=== PATIENT | male | born 1950 | race Hispanic/Latino ===

== ENCOUNTER → 2019-03-12 | Day surgery (SDC) | payer MEDICARE ==
[2019-03-09 11:51] LABS: BASOPHILS % 0.2 % (0.0-1.0); EOSINOPHILS # (AUTO) 0.1 (0.0-0.4); EOSINOPHILS % 1.5 % (0.0-6.0); HEMATOCRIT 40.6 % (38.2-49.6); LYMPHOCYTES # (AUTO) 2.2 (1.0-3.2); LYMPHOCYTES % 26.6 % (18.0-39.1); MEAN CORPUSCULAR HEMOGLOBIN 28.4 pg (28-32); MEAN CORPUSCULAR VOLUME 88.6 fL (81-99); MONOCYTES # (AUTO) 0.5 (0.2-0.8); MONOCYTES % 6.1 % (4.4-11.3); NEUTROPHILS # (AUTO) 5.4 (2.1-6.9); NEUTROPHILS % 65.2 % (38.7-80.0); PLATELET COUNT 241 x10e3/uL (140-360); RED BLOOD COUNT 4.58 x10e6/uL (4.3-5.7); RED CELL DISTRIBUTION WIDTH 14.1 % (11.7-14.4)
--- NOTE | 2019-03-09 12:19 | Diagnostic Imaging Report ---
EXAMINATION: CHEST 2 VIEWS INDICATION: Pre-operative COMPARISON: None FINDINGS: LINES/TUBES:None LUNGS:The lungs are well-inflated. No focal consolidation or pulmonary edema. PLEURA:No pleural effusion or pneumothorax. MEDIASTINUM:The cardiomediastinal silhouette appears normal in size and shape. Postoperative findings of prior CABG. BONES/SOFT TISSUES:No acute osseous injury. Sternotomy wires intact. ABDOMEN:No free air under the diaphragm. IMPRESSION: No focal pneumonia or pulmonary edema. Signed by: Melissa Esposito MD on 03/09/2019 12:16 PM
[~2019-03-12] MED LIST: ACETAMINOPHEN 1000 MG/100 ML IV ONE; ATORVASTATIN CA20 MG PO; BUPIVACAINE HCL 0.5% INJ 30 ML VIAL INJ ONE; CEFAZOLIN SOD 1 GM/NS 50ML 50 ML IV ONE; DEXAMETHASONE SOD PHOS INJ 4 MG/ML VIAL ONE; EPHEDRINE SULFATE INJ 50 MG/10 ML SYR ONE; FENTANYL CITRATE/PF 100MCG/2 ML INJ ONE; FLOMAX0.4 MG PO; LIDOCAINE HCL 2% LOCAL INJ 5 ML SDV VIAL INJ ONE; METOPROLOL SUCC25 MG PO; MIDAZOLAM HCL 2 MG/2 ML VIAL ONE; MUPIROCIN 2% OINT 22 GM TUBE ONE; ONDANSETRON HCL INJ 2MG/ML 2ML 2 MG/ML VIAL ONE; PROPOFOL IV EMULSION 10 MG/ML 20 ML VIAL ONE; SEVOFLURANE INHAL SOLN 250 ML PEN BTL ONE; ULTRAM 50MG50 MG PO
--- OUTSIDE RECORDS SUMMARY | 2019-03-12 05:43 | XMS REPORT ---
[facility] Address Unknown Phone Unavailable Care Team Providers [facility] [place] [facility] Name Role Phone YESENIA PHELAN Unavailable Unavailable Payers Payer Name Policy Type Policy Number Effective Date Expiration Date Problems This patient has no known problems. Allergies, Adverse Reactions, Alerts Allergy Name Allergy Type Status Severity Reaction(s) Onset Date Inactive Date Treating Clinician Comments No Known Allergies DA Active U 2019-01-11 00:00:00 No Known Allergies DA Active U 2018-12-20 00:00:00 No Known Allergies DA Active U 2018-11-19 00:00:00 Medications This patient has no known medications. Results Test Description Test Time Test Comments Text Results Atomic Results Result Comments CHEST 2 VIEWS 2019-03-09 12:15:00 [place] [id number] Patient Name: MORGAN SAM MR #: [id number] : 1950 Age/Sex: 68/M Req #: [id number] Adm Physician: Ordered by: YESENIA PHELAN MD Report #: [id number] Location: OR Room/Bed: Procedure: [id number] DX/CHEST 2 VIEWS Exam Date: 03/09/19 Exam Time: 1145 REPORT STATUS: Signed EXAMINATION: CHEST 2 VIEWS INDICATION: Pre-operative COMPARISON: None FINDINGS: LINES/TUBES:None LUNGS:The lungs are well-inflated. No focal consolidation or pulmonary edema. PLEURA:No pleural effusion or pneumothorax. MEDIASTINUM:The cardiomediastinal silhouette appears normal in size and shape. Postoperative findings of prior CABG. BONES/SOFT TISSUES:No acute osseous injury. Sternotomy wires intact. ABDOMEN:No free air under the diaphragm. IMPRESSION: No focal pneumonia or pulmonary edema. Signed by: Jose Hammond MD on 03/09/2019 12:16 PM Dictated By: JOSE HAMMOND MD 1216 Transcribed By: PARMINDER on 03/09/19 1216 COPY TO: YESENIA PHELAN MD - CT ABD PELVIS W/CONT 2019-01-11 23:36:00 Name: MORGAN CHEN [facility] : 1950 Age/S: 68 / M [address] [facility] Unit #: [id number] Loc: [place] [address] Phys: Keyur Blakely DO Acct: [id number] Dis Date: Status: REG ER PHONE #: [phone] Exam Date: 01/11/2019 2331 FAX #: [phone] Reason: abd pain EXAMS: CPT CODE: [id number] CT ABD PELVIS W/CONT 72571 EXAM: CT ABDOMEN AND PELVIS WITH CONTRAST. INDICATION: Abdominal pain COMPARISON: None available TECHNIQUE: Axial CT imaging of the abdomen and pelvis was obtained after the administration of intravenous contrast. Coronal and sagittal reformatted images were submitted for review. IV contrast: 100 mL of Isovue-370 DLP: 713.17 mGy-cm FINDINGS: The heart size is normal. There is a moderate pericardial effusion. There is a small left pleural effusion with left basilar atelectasis. The right lung bases clear. The liver, spleen, gallbladder, pancreas, and adrenal glands is unremarkable. No focal liver lesions are identified. No intrahepatic biliary duct dilatation. The main portal vein is patent and normal in size. The kidneys are normal in size. There is a simple renal cyst arising from the left kidney. No hydronephrosis or nephrolithiasis is identified. The urinary bladder is normal. The stomach, small bowel, large bowel, and appendix are normal in appearance. There is moderate stool noted within the rectum. No bowel obstruction is identified. No lymphadenopathy is identified in the abdomen or pelvis. No free fluid or free air. The IVC is normal. The abdominal aorta is normal in course and caliber. There are atherosclerotic calcifications of the abdominal aorta. No acute osseous abnormality is identified. IMPRESSION: Moderate pericardial effusion. Moderate left pleural effusion with left basilar atelectasis. Moderate stool noted in the rectum. No bowel obstruction. Normal appendix. LOCATION: B2 PAGE 1 Signed Report (CONTINUED) [facility] 1950 Age/S: 68 / M [address] [facility] Unit #: [id number] Loc: [place] [address] Phys: Keyur Blakely DO Acct: [id number] Dis Date: Status: REG ER PHONE #: [phone] Exam Date: 01/11/2019 2331 FAX #: [phone] Reason: abd pain EXAMS: CPT CODE: [id number] CT ABD PELVIS W/CONT 16895 <Continued> This CT exam was performed according to our departmental dose optimization program, which includes automated exposure control, adjustment of the mA and or kV according to patient size and/or use of iterative reconstruction technique. at 2336 Reported and signed by: Isabel Hernandez M.D. CC: Emmanuel Ramirez; Keyur Blakely DO Technologist:RT Charli(R)(CT) CTDI: DLP: Trnscb Date/Time: 01/11/2019 (2336) [id number] Orig Print D/T: S: 01/11/2019 (2339) PAGE 2 Signed Report BASIC METABOLIC PANEL 2019-01-11 23:06:00 SODIUM (test code=NA) 138 mmol/L 136-145 POTASSIUM (test code=K) 3.5 mmol/L 3.5-5.1 CHLORIDE (test code=CL) 104.0 mmol/L 98-107 CARBON DIOXIDE (test code=CO2) 22.0 mmol/L 21-32 ANION GAP (test code=GAP) 15.5 10-20 GLUCOSE (test code=GLU) 139 mg/dL 74-106 BLOOD UREA NITROGEN (test code=BUN) 14 mg/dL 7-18 GLOMERULAR FILTRATION RATE (test code=GFR) > 60 mL/min >=60 Estimated GFR by using Modified MDRD formula.Chronic kidney disease is defined as either kidney damageor GFR <60 mL/min/1.73 m2 for >3 months. CREATININE (test code=CREAT) 1.10 mg/dL 0.7-1.3 BUN/CREATININE RATIO (test code=BUN/CREA) 12.7 10-20 CALCIUM (test code=CA) 9.3 mg/dL 8.5-10.1 HEPATIC FUNCTION [id number] 23:06:00* Test Item Value Reference Range Comments TOTAL PROTEIN (test code=PROT) 8.2 gram/dL 6.4-8.2 ALBUMIN (test code=ALB) 4.3 g/dL 3.4-5.0 GLOBULIN (test code=GLOB) 3.9 gram/dL 2.7-4.2 ALBUMIN/GLOBULIN RATIO (test code=A/G) 1.1 0.75-1.50 BILIRUBIN TOTAL (test code=BILT) 0.50 mg/dL 0.0-1.0 BILIRUBIN DIRECT (test code=BILD) 0.18 mg/dL 0.0-0.20 SGOT/AST (test code=AST) 20 IUnit/L 15-37 SGPT/ALT (test code=ALT) 25 IUnit/L 12-78 ALKALINE PHOSPHATASE TOTAL (test code=ALKP) 94 IUnit/L 45-117 Note change in reference range due to change in reagent. [id number] 23:06:00* Test Item Value Reference Range Comments LIPASE (test code=LIP) 132 U/L 73.0-393.0 BASIC METABOLIC [id number] 22:56:00* Test Item Value Reference Range Comments SODIUM (test code=NA) 138 mmol/L 136-145 POTASSIUM (test code=K) 3.5 mmol/L 3.5-5.1 CHLORIDE (test code=CL) 104.0 mmol/L 98-107 CARBON DIOXIDE (test code=CO2) mmol/L 21-32 ANION GAP (test code=GAP) 10-20 GLUCOSE (test code=GLU) mg/dL 74-106 BLOOD UREA NITROGEN (test code=BUN) mg/dL 7-18 GLOMERULAR FILTRATION RATE (test code=GFR) mL/min >=60 CREATININE (test code=CREAT) mg/dL 0.7-1.3 BUN/CREATININE RATIO (test code=BUN/CREA) 10-20 CALCIUM (test code=CA) mg/dL 8.5-10.1 HEPATIC FUNCTION [id number] 22:56:00* Test Item Value Reference Range Comments TOTAL PROTEIN (test code=PROT) gram/dL 6.4-8.2 ALBUMIN (test code=ALB) g/dL 3.4-5.0 GLOBULIN (test code=GLOB) gram/dL 2.7-4.2 ALBUMIN/GLOBULIN RATIO (test code=A/G) 0.75-1.50 BILIRUBIN TOTAL (test code=BILT) mg/dL 0.0-1.0 BILIRUBIN DIRECT (test code=BILD) mg/dL 0.0-0.20 SGOT/AST (test code=AST) IUnit/L 15-37 SGPT/ALT (test code=ALT) IUnit/L 12-78 ALKALINE PHOSPHATASE TOTAL (test code=ALKP) IUnit/L 45-117 [id number] 22:56:00* Test Item Value Reference Range Comments LIPASE (test code=LIP) U/L 73.0-393.0 PROTHROMBIN [id number] 22:43:00* Test Item Value Reference Range Comments PROTHROMBIN TIME PATIENT (test code=PTP) 12.2 seconds 9.0-14.0 INTERNATIONAL NORMAL RATIO (test code=INR) 1.0 0.8-1.2 The therapeutic range for oral anticoagulant therapy formost indications is an international normalized ratio (INR)of between 2.0 and 3.0. The recommended therapeutic INRrange for various clinical situations is listed below: Clinical Situation INR range Pulmonary e mbolism treatment (2.0-3.0)Venous thrombosis treatmentVenous thrombosis prophylaxis (high risk surgery)Prevention of systemic embolism from: Acute myocardial infarction Valvular heart disease Atrial fibrillation Mechanical prosthetic heart valves (2.5-3.5) IS PATIENT ON ANTICOAGULANTS? NCBC W/O [id number] 22:36:00* Test Item Value Reference Range Comments WHITE BLOOD CELL (test code=WBC) 11.1 K/mm3 4.5-12.5 RED BLOOD CELL (test code=RBC) 4.53 mill/mm3 4.0-5.8 HEMOGLOBIN (test code=HGB) 12.6 gram/dL 13.0-17.5 HEMATOCRIT (test code=HCT) 40.4 % 42.0-52.0 MEAN CELL VOLUME (test code=MCV) 89.2 fL 80-98 MEAN CELL HGB (test code=MCH) 27.8 picogram 27.0-33.0 MEAN CELL HGB CONCETRATION (test code=MCHC) 31.2 gram/dL 33.0-36.0 RED CELL DISTRIBUTION WIDTH (test code=RDW) 13.2 % 11.6-16.2 PLATELET COUNT (test code=PLT) 251 K/mm3 150-450 MEAN PLATELET VOLUME (test code=MPV) 10.3 fL 6.7-11.0 [id number] 10:11:00* Test Item Value Reference Range Comments GLUBED (test code=GLUBED) 103 mg/dL 74-106 Performed by certified food production machine operator at [facility] [id number] 10:11:00* Test Item Value Reference Range Comments GLUBED (test code=GLUBED) 84 mg/dL 74-106 Performed by certified food production machine operator at [facility] [id number] 10:11:00* Test Item Value Reference Range Comments GLUBED (test code=GLUBED) 98 mg/dL 74-106 Performed by certified food production machine operator at [facility] [id number] 15:41:00* Test Item Value Reference Range Comments GLUBED (test code=GLUBED) 96 mg/dL 74-106 Performed by certified food production machine operator at [facility] [id number] 11:54:00* Test Item Value Reference Range Comments GLUBED (test code=GLUBED) 101 mg/dL 74-106 Performed by certified food production machine operator at [facility] [id number] 04:51:00* Test Item Value Reference Range Comments GLUBED (test code=GLUBED) 98 mg/dL 74-106 Performed by certified food production machine operator at [facility] [id number] 21:05:00* Test Item Value Reference Range Comments GLUBED (test code=GLUBED) 99 mg/dL 74-106 Performed by certified food production machine operator at [facility] [id number] 16:56:00* Test Item Value Reference Range Comments GLUBED (test code=GLUBED) 144 mg/dL 74-106 Performed by certified food production machine operator at [facility] [id number] 12:20:00* Test Item Value Reference Range Comments GLUBED (test code=GLUBED) 96 mg/dL 74-106 Performed by certified food production machine operator at [facility] BASIC METABOLIC [id number] 11:23:00* Test Item Value Reference Range Comments SODIUM (test code=NA) 143 mmol/L 136-145 POTASSIUM (test code=K) 3.6 mmol/L 3.5-5.1 CHLORIDE (test code=CL) 105.0 mmol/L 98-107 CARBON DIOXIDE (test code=CO2) 29.0 mmol/L 21-32 ANION GAP (test code=GAP) 12.6 10-20 GLUCOSE (test code=GLU) 144 mg/dL 74-106 BLOOD UREA NITROGEN (test code=BUN) 12 mg/dL 7-18 GLOMERULAR FILTRATION RATE (test code=GFR) > 60 mL/min >=60 Estimated GFR by using Modified MDRD formula.Chronic kidney disease is defined as either kidney damageor GFR <60 mL/min/1.73 m2 for >3 months. CREATININE (test code=CREAT) 0.92 mg/dL 0.7-1.3 BUN/CREATININE RATIO (test code=BUN/CREA) 13.0 10-20 CALCIUM (test code=CA) 8.3 mg/dL 8.5-10.1 BASIC METABOLIC [id number] 11:12:00* Test Item Value Reference Range Comments SODIUM (test code=NA) mmol/L 136-145 POTASSIUM (test code=K) mmol/L 3.5-5.1 CHLORIDE (test code=CL) mmol/L 98-107 CARBON DIOXIDE (test code=CO2) mmol/L 21-32 ANION GAP (test code=GAP) 10-20 GLUCOSE (test code=GLU) 144 mg/dL 74-106 BLOOD UREA NITROGEN (test code=BUN) 12 mg/dL 7-18 GLOMERULAR FILTRATION RATE (test code=GFR) > 60 mL/min >=60 Estimated GFR by using Modified MDRD formula.Chronic kidney disease is defined as either kidney damageor GFR <60 mL/min/1.73 m2 for >3 months. CREATININE (test code=CREAT) 0.92 mg/dL 0.7-1.3 BUN/CREATININE RATIO (test code=BUN/CREA) 13.0 10-20 CALCIUM (test code=CA) 8.3 mg/dL 8.5-10.1 BASIC METABOLIC [id number] 09:31:00* Test Item Value Reference Range Comments SODIUM (test code=NA) mmol/L 136-145 POTASSIUM (test code=K) mmol/L 3.5-5.1 CHLORIDE (test code=CL) mmol/L 98-107 CARBON DIOXIDE (test code=CO2) mmol/L 21-32 ANION GAP (test code=GAP) 10-20 GLUCOSE (test code=GLU) mg/dL 74-106 BLOOD UREA NITROGEN (test code=BUN) mg/dL 7-18 GLOMERULAR FILTRATION RATE (test code=GFR) mL/min >=60 CREATININE (test code=CREAT) mg/dL 0.7-1.3 BUN/CREATININE RATIO (test code=BUN/CREA) 10-20 CALCIUM (test code=CA) 8.3 mg/dL 8.5-10.1 CBC W/AUTO [id number] 09:08:00* Test Item Value Reference Range Comments WHITE BLOOD CELL (test code=WBC) 6.7 K/mm3 4.5-12.5 RED BLOOD CELL (test code=RBC) 2.83 mill/mm3 4.0-5.8 HEMOGLOBIN (test code=HGB) 8.5 gram/dL 13.0-17.5 HEMATOCRIT (test code=HCT) 27.0 % 42.0-52.0 MEAN CELL VOLUME (test code=MCV) 95.4 fL 80-98 MEAN CELL HGB (test code=MCH) 30.0 picogram 27.0-33.0 MEAN CELL HGB CONCETRATION (test code=MCHC) 31.5 gram/dL 33.0-36.0 RED CELL DISTRIBUTION WIDTH (test code=RDW) 14.9 % 11.6-16.2 RED CELL DISTRIBUTION WIDTH SD (test code=RDW-SD) 48.2 fL 37.0-51.0 PLATELET COUNT (test code=PLT) 294 K/mm3 150-450 MEAN PLATELET VOLUME (test code=MPV) 10.0 fL 6.7-11.0 NEUTROPHIL % (test code=NT%) 76.3 % 39.0-69.0 IMMATURE GRANULOCYTE % (test code=IG%) 1.0 % 0.0-5.0 LYMPHOCYTE % (test code=LY%) 13.2 % 25.0-55.0 MONOCYTE % (test code=MO%) 6.1 % 0.0-10.0 EOSINOPHIL % (test code=EO%) 3.1 % 0.0-5.0 BASOPHIL % (test code=BA%) 0.3 % 0.0-1.0 NUCLEATED RBC % (test code=NRBC%) 0.7 % 0-0 NEUTROPHIL # (test code=NT#) 5.09 K/mm3 1.8-7.7 IMMATURE GRANULOCYTE # (test code=IG#) 0.07 x10 3/uL 0-0.03 LYMPHOCYTE # (test code=LY#) 0.88 K/mm3 1.0-5.0 MONOCYTE # (test code=MO#) 0.41 K/mm3 0-0.8 EOSINOPHIL # (test code=EO#) 0.21 K/mm3 0.0-0.5 BASOPHIL # (test code=BA#) 0.02 K/mm3 0.0-0.2 NUCLEATED RBC # (test code=NRBC#) 0.05 K/mm3 0.0-0.1 [id number] 04:46:00* Test Item Value Reference Range Comments GLUBED (test code=GLUBED) 86 mg/dL 74-106 Performed by certified food production machine operator at [facility] [id number] 20:55:00* Test Item Value Reference Range Comments GLUBED (test code=GLUBED) 94 mg/dL 74-106 Performed by certified food production machine operator at [facility] [id number] 12:06:00* Test Item Value Reference Range Comments GLUBED (test code=GLUBED) 94 mg/dL 74-106 Performed by certified food production machine operator at [facility] BASIC METABOLIC [id number] 08:15:00* Test Item Value Reference Range Comments SODIUM (test code=NA) 144 mmol/L 136-145 POTASSIUM (test code=K) 3.9 mmol/L 3.5-5.1 CHLORIDE (test code=CL) 108.0 mmol/L 98-107 CARBON DIOXIDE (test code=CO2) 29.0 mmol/L 21-32 ANION GAP (test code=GAP) 10.9 10-20 GLUCOSE (test code=GLU) 97 mg/dL 74-106 BLOOD UREA NITROGEN (test code=BUN) 12 mg/dL 7-18 GLOMERULAR FILTRATION RATE (test code=GFR) > 60 mL/min >=60 Estimated GFR by using Modified MDRD formula.Chronic kidney disease is defined as either kidney damageor GFR <60 mL/min/1.73 m2 for >3 months. CREATININE (test code=CREAT) 0.90 mg/dL 0.7-1.3 BUN/CREATININE RATIO (test code=BUN/CREA) 12.8 10-20 CALCIUM (test code=CA) 8.1 mg/dL 8.5-10.1 CBC W/AUTO [id number] 07:55:00* Test Item Value Reference Range Comments WHITE BLOOD CELL (test code=WBC) 6.5 K/mm3 4.5-12.5 RED BLOOD CELL (test code=RBC) 2.56 mill/mm3 4.0-5.8 HEMOGLOBIN (test code=HGB) 7.8 gram/dL 13.0-17.5 HEMATOCRIT (test code=HCT) 24.3 % 42.0-52.0 MEAN CELL VOLUME (test code=MCV) 94.9 fL 80-98 MEAN CELL HGB (test code=MCH) 30.5 picogram 27.0-33.0 MEAN CELL HGB CONCETRATION (test code=MCHC) 32.1 gram/dL 33.0-36.0 RED CELL DISTRIBUTION WIDTH (test code=RDW) 14.4 % 11.6-16.2 RED CELL DISTRIBUTION WIDTH SD (test code=RDW-SD) 47.5 fL 37.0-51.0 PLATELET COUNT (test code=PLT) 229 K/mm3 150-450 RESULT VERIFIED BY REPEAT ANALYSIS MEAN PLATELET VOLUME (test code=MPV) 10.2 fL 6.7-11.0 NEUTROPHIL % (test code=NT%) 74.1 % 39.0-69.0 IMMATURE GRANULOCYTE % (test code=IG%) 0.9 % 0.0-5.0 LYMPHOCYTE % (test code=LY%) 14.4 % 25.0-55.0 MONOCYTE % (test code=MO%) 7.4 % 0.0-10.0 EOSINOPHIL % (test code=EO%) 2.9 % 0.0-5.0 BASOPHIL % (test code=BA%) 0.3 % 0.0-1.0 NUCLEATED RBC % (test code=NRBC%) 0.9 % 0-0 NEUTROPHIL # (test code=NT#) 4.78 K/mm3 1.8-7.7 IMMATURE GRANULOCYTE # (test code=IG#) 0.06 x10 3/uL 0-0.03 LYMPHOCYTE # (test code=LY#) 0.93 K/mm3 1.0-5.0 MONOCYTE # (test code=MO#) 0.48 K/mm3 0-0.8 EOSINOPHIL # (test code=EO#) 0.19 K/mm3 0.0-0.5 BASOPHIL # (test code=BA#) 0.02 K/mm3 0.0-0.2 NUCLEATED RBC # (test code=NRBC#) 0.06 K/mm3 0.0-0.1 [id number] 05:49:00* Test Item Value Reference Range Comments GLUBED (test code=GLUBED) 102 mg/dL 74-106 Performed by certified food production machine operator at [facility] [id number] 20:25:00* Test Item Value Reference Range Comments GLUBED (test code=GLUBED) 106 mg/dL 74-106 Performed by certified food production machine operator at [facility] [id number] 17:38:00* Test Item Value Reference Range Comments GLUBED (test code=GLUBED) 109 mg/dL 74-106 Performed by certified food production machine operator at [facility] [id number] 13:05:00* Test Item Value Reference Range Comments GLUBED (test code=GLUBED) 131 mg/dL 74-106 Performed by certified food production machine operator at [facility] BASIC METABOLIC [id number] 08:59:00* Test Item Value Reference Range Comments SODIUM (test code=NA) 143 mmol/L 136-145 POTASSIUM (test code=K) 3.6 mmol/L 3.5-5.1 CHLORIDE (test code=CL) 110.0 mmol/L 98-107 CARBON DIOXIDE (test code=CO2) 26.0 mmol/L 21-32 ANION GAP (test code=GAP) 10.6 10-20 GLUCOSE (test code=GLU) 106 mg/dL 74-106 BLOOD UREA NITROGEN (test code=BUN) 13 mg/dL 7-18 GLOMERULAR FILTRATION RATE (test code=GFR) > 60 mL/min >=60 Estimated GFR by using Modified MDRD formula.Chronic kidney disease is defined as either kidney damageor GFR <60 mL/min/1.73 m2 for >3 months. CREATININE (test code=CREAT) 0.90 mg/dL 0.7-1.3 BUN/CREATININE RATIO (test code=BUN/CREA) 14.2 10-20 CALCIUM (test code=CA) 7.9 mg/dL 8.5-10.1 BASIC METABOLIC [id number] 08:47:00* Test Item Value Reference Range Comments SODIUM (test code=NA) 143 mmol/L 136-145 POTASSIUM (test code=K) 3.6 mmol/L 3.5-5.1 CHLORIDE (test code=CL) 110.0 mmol/L 98-107 CARBON DIOXIDE (test code=CO2) mmol/L 21-32 ANION GAP (test code=GAP) 10-20 GLUCOSE (test code=GLU) mg/dL 74-106 BLOOD UREA NITROGEN (test code=BUN) mg/dL 7-18 GLOMERULAR FILTRATION RATE (test code=GFR) mL/min >=60 CREATININE (test code=CREAT) mg/dL 0.7-1.3 BUN/CREATININE RATIO (test code=BUN/CREA) 10-20 CALCIUM (test code=CA) mg/dL 8.5-10.1 CBC W/AUTO [id number] 08:35:00* Test Item Value Reference Range Comments WHITE BLOOD CELL (test code=WBC) 7.3 K/mm3 4.5-12.5 RED BLOOD CELL (test code=RBC) 2.61 mill/mm3 4.0-5.8 HEMOGLOBIN (test code=HGB) 7.7 gram/dL 13.0-17.5 HEMATOCRIT (test code=HCT) 24.1 % 42.0-52.0 MEAN CELL VOLUME (test code=MCV) 92.3 fL 80-98 MEAN CELL HGB (test code=MCH) 29.5 picogram 27.0-33.0 MEAN CELL HGB CONCETRATION (test code=MCHC) 32.0 gram/dL 33.0-36.0 RED CELL DISTRIBUTION WIDTH (test code=RDW) 14.4 % 11.6-16.2 RED CELL DISTRIBUTION WIDTH SD (test code=RDW-SD) 47.8 fL 37.0-51.0 PLATELET COUNT (test code=PLT) 177 K/mm3 150-450 MEAN PLATELET VOLUME (test code=MPV) 10.7 fL 6.7-11.0 NEUTROPHIL % (test code=NT%) 70.9 % 39.0-69.0 IMMATURE GRANULOCYTE % (test code=IG%) 1.0 % 0.0-5.0 LYMPHOCYTE % (test code=LY%) 18.3 % 25.0-55.0 MONOCYTE % (test code=MO%) 7.5 % 0.0-10.0 EOSINOPHIL % (test code=EO%) 2.0 % 0.0-5.0 BASOPHIL % (test code=BA%) 0.3 % 0.0-1.0 NUCLEATED RBC % (test code=NRBC%) 0.7 % 0-0 NEUTROPHIL # (test code=NT#) 5.20 K/mm3 1.8-7.7 IMMATURE GRANULOCYTE # (test code=IG#) 0.07 x10 3/uL 0-0.03 LYMPHOCYTE # (test code=LY#) 1.34 K/mm3 1.0-5.0 MONOCYTE # (test code=MO#) 0.55 K/mm3 0-0.8 EOSINOPHIL # (test code=EO#) 0.15 K/mm3 0.0-0.5 BASOPHIL # (test code=BA#) 0.02 K/mm3 0.0-0.2 NUCLEATED RBC # (test code=NRBC#) 0.05 K/mm3 0.0-0.1 [id number] 20:57:00* Test Item Value Reference Range Comments GLUBED (test code=GLUBED) 111 mg/dL 74-106 Performed by certified food production machine operator at [facility] [id number] 12:18:00* Test Item Value Reference Range Comments GLUBED (test code=GLUBED) 114 mg/dL 74-106 Performed by certified food production machine operator at [facility] CBC W/AUTO [id number] 07:47:00* Test Item Value Reference Range Comments WHITE BLOOD CELL (test code=WBC) 7.4 K/mm3 4.5-12.5 RED BLOOD CELL (test code=RBC) 2.45 mill/mm3 4.0-5.8 HEMOGLOBIN (test code=HGB) 7.4 gram/dL 13.0-17.5 HEMATOCRIT (test code=HCT) 23.0 % 42.0-52.0 MEAN CELL VOLUME (test code=MCV) 93.9 fL 80-98 MEAN CELL HGB (test code=MCH) 30.2 picogram 27.0-33.0 MEAN CELL HGB CONCETRATION (test code=MCHC) 32.2 gram/dL 33.0-36.0 RED CELL DISTRIBUTION WIDTH (test code=RDW) 14.7 % 11.6-16.2 RED CELL DISTRIBUTION WIDTH SD (test code=RDW-SD) 50.3 fL 37.0-51.0 PLATELET COUNT (test code=PLT) 102 K/mm3 150-450 MEAN PLATELET VOLUME (test code=MPV) 11.1 fL 6.7-11.0 NEUTROPHIL % (test code=NT%) 70.8 % 39.0-69.0 IMMATURE GRANULOCYTE % (test code=IG%) 1.2 % 0.0-5.0 LYMPHOCYTE % (test code=LY%) 17.8 % 25.0-55.0 MONOCYTE % (test code=MO%) 8.4 % 0.0-10.0 EOSINOPHIL % (test code=EO%) 1.5 % 0.0-5.0 BASOPHIL % (test code=BA%) 0.3 % 0.0-1.0 NUCLEATED RBC % (test code=NRBC%) 0.5 % 0-0 NEUTROPHIL # (test code=NT#) 5.26 K/mm3 1.8-7.7 IMMATURE GRANULOCYTE # (test code=IG#) 0.09 x10 3/uL 0-0.03 LYMPHOCYTE # (test code=LY#) 1.32 K/mm3 1.0-5.0 MONOCYTE # (test code=MO#) 0.62 K/mm3 0-0.8 EOSINOPHIL # (test code=EO#) 0.11 K/mm3 0.0-0.5 BASOPHIL # (test code=BA#) 0.02 K/mm3 0.0-0.2 NUCLEATED RBC # (test code=NRBC#) 0.04 K/mm3 0.0-0.1 MANUAL DIFF REQUIRED (test code=MDIFF) NO, ONLY SCAN NEEDED DIFFERENTIAL [id number] 07:47:00* Test Item Value Reference Range Comments STAIN ACCEPTABILITY (test code=STN ACCEPTABLE) STAIN ACCEPTABLE POLYCHROMASIA (test code=POLC) 1+ HYPOCHROMIA (test code=HYPO) 1+ PLATELET ESTIMATE (test code=PLTEST) SLIGHTLY DECREASED PLATELET MORPHOLOGY (test code=PLTMORPH) NORMAL - XR CHEST 1 [id number] 06:02:00 FAX: Emmanuel Hammonds MD [phone] [place]: B St: ADM FAX: Martir Alvarado MD [phone] FAX: [facility] [phone] FAX: Shree Madrigal NP [phone] Name: SANDRITA MORGAN FRIAS [facility] : 1950 Age/S: 68/M [address] Unit #: [id number] Loc: [address] [address] Phys: Shree Cuellar [employer] Acct: [id number] Dis Date: Status: ADM IN PHONE #: [phone] Exam D ate: 12/05/2018 05 FAX #: [phone] Reason: P OST OP DAY 3 (CABG) EXAMS: CPT CODE: [id number] XR CHEST 1 V 12820 CLINICAL HISTORY: POST OP DAY 3 (CABG) TECHNIQUE: AP chest x-ray COMPARISON: Previous day. IMPRESSION: No significant interval change. Low lung volumes with bibasilar atelectasis, greater on the left. No evident pl eural effusion. Cardiomegaly. Right central venous catheter. at 0602 Reported and signed by: Henny Tierney D.O. CC: Emmanuel Ramirez; Martir Javed; Daryl Cohen; Shree De La Rosa NP Technologist: OSIRIS MORELAND JR Trnscrd Date/Time/By: 9 (0602) : By: [email or web address] Orig Print D/T: S: 12/05/2018 (0605) PAGE 1 Signed Report BASIC METABOLIC [id number] 05:02:00* Test Item Value Reference Range Comments SODIUM (test code=NA) 145 mmol/L 136-145 POTASSIUM (test code=K) 3.9 mmol/L 3.5-5.1 CHLORIDE (test code=CL) 113.0 mmol/L 98-107 CARBON DIOXIDE (test code=CO2) 25.0 mmol/L 21-32 ANION GAP (test code=GAP) 10.9 10-20 GLUCOSE (test code=GLU) 96 mg/dL 74-106 BLOOD UREA NITROGEN (test code=BUN) 22 mg/dL 7-18 GLOMERULAR FILTRATION RATE (test code=GFR) > 60 mL/min >=60 Estimated GFR by using Modified MDRD formula.Chronic kidney disease is defined as either kidney damageor GFR <60 mL/min/1.73 m2 for >3 months. CREATININE (test code=CREAT) 1.00 mg/dL 0.7-1.3 BUN/CREATININE RATIO (test code=BUN/CREA) 21.4 10-20 CALCIUM (test code=CA) 7.4 mg/dL 8.5-10.1 [id number] 05:02:00* Test Item Value Reference Range Comments PHOSPHORUS (test code=PHOS) 1.9 mg/dL 2.5-4.9 [id number] 05:02:00* Test Item Value Reference Range Comments MAGNESIUM (test code=MAG) 2.2 mg/dL 1.8-2.4 CALCIUM [id number] 05:02:00* Test Item Value Reference Range Comments CALCIUM IONIZED (test code=CYNTHIA) 1.23 mmol/L 1.12-1.32 BASIC METABOLIC [id number] 04:29:00* Test Item Value Reference Range Comments SODIUM (test code=NA) mmol/L 136-145 POTASSIUM (test code=K) mmol/L 3.5-5.1 CHLORIDE (test code=CL) mmol/L 98-107 CARBON DIOXIDE (test code=CO2) mmol/L 21-32 ANION GAP (test code=GAP) 10-20 GLUCOSE (test code=GLU) mg/dL 74-106 BLOOD UREA NITROGEN (test code=BUN) mg/dL 7-18 GLOMERULAR FILTRATION RATE (test code=GFR) mL/min >=60 CREATININE (test code=CREAT) mg/dL 0.7-1.3 BUN/CREATININE RATIO (test code=BUN/CREA) 10-20 CALCIUM (test code=CA) mg/dL 8.5-10.1 [id number] 04:29:00* Test Item Value Reference Range Comments PHOSPHORUS (test code=PHOS) mg/dL 2.5-4.9 [id number] 04:29:00* Test Item Value Reference Range Comments MAGNESIUM (test code=MAG) mg/dL 1.8-2.4 CALCIUM [id number] 04:29:00* Test Item Value Reference Range Comments CALCIUM IONIZED (test code=CYNTHIA) 1.23 mmol/L 1.12-1.32 CBC W/AUTO [id number] 04:11:00* Test Item Value Reference Range Comments WHITE BLOOD CELL (test code=WBC) 7.4 K/mm3 4.5-12.5 RED BLOOD CELL (test code=RBC) 2.45 mill/mm3 4.0-5.8 HEMOGLOBIN (test code=HGB) 7.4 gram/dL 13.0-17.5 HEMATOCRIT (test code=HCT) 23.0 % 42.0-52.0 MEAN CELL VOLUME (test code=MCV) 93.9 fL 80-98 MEAN CELL HGB (test code=MCH) 30.2 picogram 27.0-33.0 MEAN CELL HGB CONCETRATION (test code=MCHC) 32.2 gram/dL 33.0-36.0 RED CELL DISTRIBUTION WIDTH (test code=RDW) 14.7 % 11.6-16.2 RED CELL DISTRIBUTION WIDTH SD (test code=RDW-SD) 50.3 fL 37.0-51.0 PLATELET COUNT (test code=PLT) 102 K/mm3 150-450 MEAN PLATELET VOLUME (test code=MPV) 11.1 fL 6.7-11.0 NEUTROPHIL % (test code=NT%) 70.8 % 39.0-69.0 IMMATURE GRANULOCYTE % (test code=IG%) 1.2 % 0.0-5.0 LYMPHOCYTE % (test code=LY%) 17.8 % 25.0-55.0 MONOCYTE % (test code=MO%) 8.4 % 0.0-10.0 EOSINOPHIL % (test code=EO%) 1.5 % 0.0-5.0 BASOPHIL % (test code=BA%) 0.3 % 0.0-1.0 NUCLEATED RBC % (test code=NRBC%) 0.5 % 0-0 NEUTROPHIL # (test code=NT#) 5.26 K/mm3 1.8-7.7 IMMATURE GRANULOCYTE # (test code=IG#) 0.09 x10 3/uL 0-0.03 LYMPHOCYTE # (test code=LY#) 1.32 K/mm3 1.0-5.0 MONOCYTE # (test code=MO#) 0.62 K/mm3 0-0.8 EOSINOPHIL # (test code=EO#) 0.11 K/mm3 0.0-0.5 BASOPHIL # (test code=BA#) 0.02 K/mm3 0.0-0.2 NUCLEATED RBC # (test code=NRBC#) 0.04 K/mm3 0.0-0.1 MANUAL DIFF REQUIRED (test code=MDIFF) NO, ONLY SCAN NEEDED DIFFERENTIAL [id number] 04:11:00* Test Item Value Reference Range Comments STAIN ACCEPTABILITY (test code=STN ACCEPTABLE) CABOT RINGS (test code=CAB) MORPHOLOGY COMMENT (test code=MOC) PLATELET ESTIMATE (test code=PLTEST) PLATELET MORPHOLOGY (test code=PLTMORPH) CBC W/AUTO [id number] 04:11:00* Test Item Value Reference Range Comments WHITE BLOOD CELL (test code=WBC) 7.4 K/mm3 4.5-12.5 RED BLOOD CELL (test code=RBC) 2.45 mill/mm3 4.0-5.8 HEMOGLOBIN (test code=HGB) 7.4 gram/dL 13.0-17.5 HEMATOCRIT (test code=HCT) 23.0 % 42.0-52.0 MEAN CELL VOLUME (test code=MCV) 93.9 fL 80-98 MEAN CELL HGB (test code=MCH) 30.2 picogram 27.0-33.0 MEAN CELL HGB CONCETRATION (test code=MCHC) 32.2 gram/dL 33.0-36.0 RED CELL DISTRIBUTION WIDTH (test code=RDW) 14.7 % 11.6-16.2 RED CELL DISTRIBUTION WIDTH SD (test code=RDW-SD) 50.3 fL 37.0-51.0 PLATELET COUNT (test code=PLT) 102 K/mm3 150-450 MEAN PLATELET VOLUME (test code=MPV) 11.1 fL 6.7-11.0 NEUTROPHIL % (test code=NT%) 70.8 % 39.0-69.0 IMMATURE GRANULOCYTE % (test code=IG%) 1.2 % 0.0-5.0 LYMPHOCYTE % (test code=LY%) 17.8 % 25.0-55.0 MONOCYTE % (test code=MO%) 8.4 % 0.0-10.0 EOSINOPHIL % (test code=EO%) 1.5 % 0.0-5.0 BASOPHIL % (test code=BA%) 0.3 % 0.0-1.0 NUCLEATED RBC % (test code=NRBC%) 0.5 % 0-0 NEUTROPHIL # (test code=NT#) 5.26 K/mm3 1.8-7.7 IMMATURE GRANULOCYTE # (test code=IG#) 0.09 x10 3/uL 0-0.03 LYMPHOCYTE # (test code=LY#) 1.32 K/mm3 1.0-5.0 MONOCYTE # (test code=MO#) 0.62 K/mm3 0-0.8 EOSINOPHIL # (test code=EO#) 0.11 K/mm3 0.0-0.5 BASOPHIL # (test code=BA#) 0.02 K/mm3 0.0-0.2 NUCLEATED RBC # (test code=NRBC#) 0.04 K/mm3 0.0-0.1 MANUAL DIFF REQUIRED (test code=MDIFF) NO, ONLY SCAN NEEDED DIFFERENTIAL [id number] 04:11:00* Test Item Value Reference Range Comments STAIN ACCEPTABILITY (test code=STN ACCEPTABLE) MORPHOLOGY COMMENT (test code=MOC) PLATELET ESTIMATE (test code=PLTEST) PLATELET MORPHOLOGY (test code=PLTMORPH) CBC W/AUTO [id number] 04:10:00* Test Item Value Reference Range Comments WHITE BLOOD CELL (test code=WBC) 7.4 K/mm3 4.5-12.5 RED BLOOD CELL (test code=RBC) 2.45 mill/mm3 4.0-5.8 HEMOGLOBIN (test code=HGB) 7.4 gram/dL 13.0-17.5 HEMATOCRIT (test code=HCT) 23.0 % 42.0-52.0 MEAN CELL VOLUME (test code=MCV) 93.9 fL 80-98 MEAN CELL HGB (test code=MCH) 30.2 picogram 27.0-33.0 MEAN CELL HGB CONCETRATION (test code=MCHC) 32.2 gram/dL 33.0-36.0 RED CELL DISTRIBUTION WIDTH (test code=RDW) 14.7 % 11.6-16.2 RED CELL DISTRIBUTION WIDTH SD (test code=RDW-SD) 50.3 fL 37.0-51.0 PLATELET COUNT (test code=PLT) 102 K/mm3 150-450 MEAN PLATELET VOLUME (test code=MPV) 11.1 fL 6.7-11.0 NEUTROPHIL % (test code=NT%) 70.8 % 39.0-69.0 IMMATURE GRANULOCYTE % (test code=IG%) 1.2 % 0.0-5.0 LYMPHOCYTE % (test code=LY%) 17.8 % 25.0-55.0 MONOCYTE % (test code=MO%) 8.4 % 0.0-10.0 EOSINOPHIL % (test code=EO%) 1.5 % 0.0-5.0 BASOPHIL % (test code=BA%) 0.3 % 0.0-1.0 NUCLEATED RBC % (test code=NRBC%) 0.5 % 0-0 NEUTROPHIL # (test code=NT#) 5.26 K/mm3 1.8-7.7 IMMATURE GRANULOCYTE # (test code=IG#) 0.09 x10 3/uL 0-0.03 LYMPHOCYTE # (test code=LY#) 1.32 K/mm3 1.0-5.0 MONOCYTE # (test code=MO#) 0.62 K/mm3 0-0.8 EOSINOPHIL # (test code=EO#) 0.11 K/mm3 0.0-0.5 BASOPHIL # (test code=BA#) 0.02 K/mm3 0.0-0.2 NUCLEATED RBC # (test code=NRBC#) 0.04 K/mm3 0.0-0.1 MANUAL DIFF REQUIRED (test code=MDIFF) NO, ONLY SCAN NEEDED DIFFERENTIAL [id number] 04:10:00* Test Item Value Reference Range Comments STAIN ACCEPTABILITY (test code=STN ACCEPTABLE) CABOT RINGS (test code=CAB) MORPHOLOGY COMMENT (test code=MOC) PLATELET ESTIMATE (test code=PLTEST) PLATELET MORPHOLOGY (test code=PLTMORPH) CBC W/AUTO [id number] 04:10:00* Test Item Value Reference Range Comments WHITE BLOOD CELL (test code=WBC) 7.4 K/mm3 4.5-12.5 RED BLOOD CELL (test code=RBC) 2.45 mill/mm3 4.0-5.8 HEMOGLOBIN (test code=HGB) 7.4 gram/dL 13.0-17.5 HEMATOCRIT (test code=HCT) 23.0 % 42.0-52.0 MEAN CELL VOLUME (test code=MCV) 93.9 fL 80-98 MEAN CELL HGB (test code=MCH) 30.2 picogram 27.0-33.0 MEAN CELL HGB CONCETRATION (test code=MCHC) 32.2 gram/dL 33.0-36.0 RED CELL DISTRIBUTION WIDTH (test code=RDW) 14.7 % 11.6-16.2 RED CELL DISTRIBUTION WIDTH SD (test code=RDW-SD) 50.3 fL 37.0-51.0 PLATELET COUNT (test code=PLT) 102 K/mm3 150-450 MEAN PLATELET VOLUME (test code=MPV) 11.1 fL 6.7-11.0 NEUTROPHIL % (test code=NT%) 70.8 % 39.0-69.0 IMMATURE GRANULOCYTE % (test code=IG%) 1.2 % 0.0-5.0 LYMPHOCYTE % (test code=LY%) 17.8 % 25.0-55.0 MONOCYTE % (test code=MO%) 8.4 % 0.0-10.0 EOSINOPHIL % (test code=EO%) 1.5 % 0.0-5.0 BASOPHIL % (test code=BA%) 0.3 % 0.0-1.0 NUCLEATED RBC % (test code=NRBC%) 0.5 % 0-0 NEUTROPHIL # (test code=NT#) 5.26 K/mm3 1.8-7.7 IMMATURE GRANULOCYTE # (test code=IG#) 0.09 x10 3/uL 0-0.03 LYMPHOCYTE # (test code=LY#) 1.32 K/mm3 1.0-5.0 MONOCYTE # (test code=MO#) 0.62 K/mm3 0-0.8 EOSINOPHIL # (test code=EO#) 0.11 K/mm3 0.0-0.5 BASOPHIL # (test code=BA#) 0.02 K/mm3 0.0-0.2 NUCLEATED RBC # (test code=NRBC#) 0.04 K/mm3 0.0-0.1 MANUAL DIFF REQUIRED (test code=MDIFF) NO, ONLY SCAN NEEDED DIFFERENTIAL [id number] 04:10:00* Test Item Value Reference Range Comments STAIN ACCEPTABILITY (test code=STN ACCEPTABLE) CABOT RINGS (test code=CAB) MORPHOLOGY COMMENT (test code=MOC) PLATELET ESTIMATE (test code=PLTEST) PLATELET MORPHOLOGY (test code=PLTMORPH) CBC W/AUTO [id number] 19:47:00* Test Item Value Reference Range Comments WHITE BLOOD CELL (test code=WBC) 9.4 K/mm3 4.5-12.5 RED BLOOD CELL (test code=RBC) 2.61 mill/mm3 4.0-5.8 HEMOGLOBIN (test code=HGB) 7.9 gram/dL 13.0-17.5 HEMATOCRIT (test code=HCT) 24.4 % 42.0-52.0 MEAN CELL VOLUME (test code=MCV) 93.5 fL 80-98 MEAN CELL HGB (test code=MCH) 30.3 picogram 27.0-33.0 MEAN CELL HGB CONCETRATION (test code=MCHC) 32.4 gram/dL 33.0-36.0 RED CELL DISTRIBUTION WIDTH (test code=RDW) 14.1 % 11.6-16.2 RED CELL DISTRIBUTION WIDTH SD (test code=RDW-SD) 48.1 fL 37.0-51.0 PLATELET COUNT (test code=PLT) 97 K/mm3 150-450 RESULT VERIFIED BY REPEAT ANALYSIS MEAN PLATELET VOLUME (test code=MPV) 11.6 fL 6.7-11.0 NEUTROPHIL % (test code=NT%) 75.3 % 39.0-69.0 IMMATURE GRANULOCYTE % (test code=IG%) 0.7 % 0.0-5.0 LYMPHOCYTE % (test code=LY%) 14.2 % 25.0-55.0 MONOCYTE % (test code=MO%) 9.5 % 0.0-10.0 EOSINOPHIL % (test code=EO%) 0.1 % 0.0-5.0 BASOPHIL % (test code=BA%) 0.2 % 0.0-1.0 NUCLEATED RBC % (test code=NRBC%) 0.2 % 0-0 NEUTROPHIL # (test code=NT#) 7.06 K/mm3 1.8-7.7 IMMATURE GRANULOCYTE # (test code=IG#) 0.07 x10 3/uL 0-0.03 LYMPHOCYTE # (test code=LY#) 1.33 K/mm3 1.0-5.0 MONOCYTE # (test code=MO#) 0.89 K/mm3 0-0.8 EOSINOPHIL # (test code=EO#) 0.01 K/mm3 0.0-0.5 BASOPHIL # (test code=BA#) 0.02 K/mm3 0.0-0.2 NUCLEATED RBC # (test code=NRBC#) 0.02 K/mm3 0.0-0.1 MANUAL DIFF REQUIRED (test code=MDIFF) NO, ONLY SCAN NEEDED DIFFERENTIAL [id number] 19:47:00* Test Item Value Reference Range Comments STAIN ACCEPTABILITY (test code=STN ACCEPTABLE) STAIN ACCEPTABLE MORPHOLOGY COMMENT (test code=MOC) NORMAL PLATELET ESTIMATE (test code=PLTEST) DECREASED PLATELET MORPHOLOGY (test code=PLTMORPH) NORMAL - XR CHEST 1 [id number] 18:55:00 FAX: Emmanuel Hammonds MD [phone] [place]: B St: ADM FAX: Martir Alvarado MD [phone] FAX: Lolly Prince FAX: [facility] [phone] Name: SANDRITA FRIASMORGAN [facility] : 1950 Age/S: 68/M [address] [facility] Unit #: [id number] Loc: V.S [address] [place] [id number] Phys: Lolly Aguero NP Acct: [id number] Dis Date: Status: ADM IN PHONE #: [phone] Exam D ate: 12/04/2018 1748 FAX #: [phone] Reason: s /p removal mediastinal and pleural chest tubes EXAMS: CPT CODE: [id number] XR CHEST 1 V [id number] REASON FOR EXAM: s/p removal mediast inal and pleural chest tubes EXAM ORDER DATE: 12/04/2018 5:41 PM Ordering MNorma: Lolly Aguero NP PROCEDURE: - XR CHEST 1 V COMPARISON: 12/04/2018 at 4:34 AM FIND INGS: Portable AP frontal view of the chest obtained at 5:48 PM shows sid ar lungs without evidence of consolidation. There is no evidence of effusi on. The heart size is minimally enlarged. Stable appearance of the right IJ central line. Pulmonary vasculatures are minimally congested. IMPRESSION: Status post removal of the mediastinal drainage tubes and left surgical chest tube. No evidence of pneumothorax Electro nically Signed by Sunny Britt on 12/04/2018 at 1855 Rep orted and signed by: Bryan Britt M.D. CC: Emmanuel Ramirez; Rafael Javed; Lolly Aguero NP; [facility] Technologist: Geeta Gomez(R) Trnscrd Date/Time/By: 12/04/2018 (1854) : By: MollyL Orig Print D/T: S: 12/04/2018 (1857) PAGE 1 Signed Report BASIC METABOLIC PANEL 2018-12-04 17:58:00* Test Item Value Reference Range Comments SODIUM (test code=NA) 145 mmol/L 136-145 POTASSIUM (test code=K) 4.2 mmol/L 3.5-5.1 CHLORIDE (test code=CL) 114.0 mmol/L 98-107 CARBON DIOXIDE (test code=CO2) 23.0 mmol/L 21-32 ANION GAP (test code=GAP) 12.2 10-20 GLUCOSE (test code=GLU) 111 mg/dL 74-106 BLOOD UREA NITROGEN (test code=BUN) 25 mg/dL 7-18 GLOMERULAR FILTRATION RATE (test code=GFR) 60 mL/min >=60 Estimated GFR by using Modified MDRD formula.Chronic kidney disease is defined as either kidney damageor GFR <60 mL/min/1.73 m2 for >3 months. CREATININE (test code=CREAT) 1.20 mg/dL 0.7-1.3 BUN/CREATININE RATIO (test code=BUN/CREA) 21.0 10-20 CALCIUM (test code=CA) 8.0 mg/dL 8.5-10.1 BASIC METABOLIC [id number] 17:52:00* Test Item Value Reference Range Comments SODIUM (test code=NA) 145 mmol/L 136-145 POTASSIUM (test code=K) 4.2 mmol/L 3.5-5.1 CHLORIDE (test code=CL) 114.0 mmol/L 98-107 CARBON DIOXIDE (test code=CO2) mmol/L 21-32 ANION GAP (test code=GAP) 10-20 GLUCOSE (test code=GLU) mg/dL 74-106 BLOOD UREA NITROGEN (test code=BUN) mg/dL 7-18 GLOMERULAR FILTRATION RATE (test code=GFR) mL/min >=60 CREATININE (test code=CREAT) mg/dL 0.7-1.3 BUN/CREATININE RATIO (test code=BUN/CREA) 10-20 CALCIUM (test code=CA) mg/dL 8.5-10.1 CBC W/AUTO [id number] 17:06:00* Test Item Value Reference Range Comments WHITE BLOOD CELL (test code=WBC) 9.4 K/mm3 4.5-12.5 RED BLOOD CELL (test code=RBC) 2.61 mill/mm3 4.0-5.8 HEMOGLOBIN (test code=HGB) 7.9 gram/dL 13.0-17.5 HEMATOCRIT (test code=HCT) 24.4 % 42.0-52.0 MEAN CELL VOLUME (test code=MCV) 93.5 fL 80-98 MEAN CELL HGB (test code=MCH) 30.3 picogram 27.0-33.0 MEAN CELL HGB CONCETRATION (test code=MCHC) 32.4 gram/dL 33.0-36.0 RED CELL DISTRIBUTION WIDTH (test code=RDW) 14.1 % 11.6-16.2 RED CELL DISTRIBUTION WIDTH SD (test code=RDW-SD) 48.1 fL 37.0-51.0 PLATELET COUNT (test code=PLT) 97 K/mm3 150-450 RESULT VERIFIED BY REPEAT ANALYSIS MEAN PLATELET VOLUME (test code=MPV) 11.6 fL 6.7-11.0 NEUTROPHIL % (test code=NT%) 75.3 % 39.0-69.0 IMMATURE GRANULOCYTE % (test code=IG%) 0.7 % 0.0-5.0 LYMPHOCYTE % (test code=LY%) 14.2 % 25.0-55.0 MONOCYTE % (test code=MO%) 9.5 % 0.0-10.0 EOSINOPHIL % (test code=EO%) 0.1 % 0.0-5.0 BASOPHIL % (test code=BA%) 0.2 % 0.0-1.0 NUCLEATED RBC % (test code=NRBC%) 0.2 % 0-0 NEUTROPHIL # (test code=NT#) 7.06 K/mm3 1.8-7.7 IMMATURE GRANULOCYTE # (test code=IG#) 0.07 x10 3/uL 0-0.03 LYMPHOCYTE # (test code=LY#) 1.33 K/mm3 1.0-5.0 MONOCYTE # (test code=MO#) 0.89 K/mm3 0-0.8 EOSINOPHIL # (test code=EO#) 0.01 K/mm3 0.0-0.5 BASOPHIL # (test code=BA#) 0.02 K/mm3 0.0-0.2 NUCLEATED RBC # (test code=NRBC#) 0.02 K/mm3 0.0-0.1 MANUAL DIFF REQUIRED (test code=MDIFF) NO, ONLY SCAN NEEDED DIFFERENTIAL [id number] 17:06:00* Test Item Value Reference Range Comments STAIN ACCEPTABILITY (test code=STN ACCEPTABLE) CABOT RINGS (test code=CAB) MORPHOLOGY COMMENT (test code=MOC) PLATELET ESTIMATE (test code=PLTEST) PLATELET MORPHOLOGY (test code=PLTMORPH) CBC W/AUTO [id number] 17:06:00* Test Item Value Reference Range Comments WHITE BLOOD CELL (test code=WBC) 9.4 K/mm3 4.5-12.5 RED BLOOD CELL (test code=RBC) 2.61 mill/mm3 4.0-5.8 HEMOGLOBIN (test code=HGB) 7.9 gram/dL 13.0-17.5 HEMATOCRIT (test code=HCT) 24.4 % 42.0-52.0 MEAN CELL VOLUME (test code=MCV) 93.5 fL 80-98 MEAN CELL HGB (test code=MCH) 30.3 picogram 27.0-33.0 MEAN CELL HGB CONCETRATION (test code=MCHC) 32.4 gram/dL 33.0-36.0 RED CELL DISTRIBUTION WIDTH (test code=RDW) 14.1 % 11.6-16.2 RED CELL DISTRIBUTION WIDTH SD (test code=RDW-SD) 48.1 fL 37.0-51.0 PLATELET COUNT (test code=PLT) 97 K/mm3 150-450 RESULT VERIFIED BY REPEAT ANALYSIS MEAN PLATELET VOLUME (test code=MPV) 11.6 fL 6.7-11.0 NEUTROPHIL % (test code=NT%) 75.3 % 39.0-69.0 IMMATURE GRANULOCYTE % (test code=IG%) 0.7 % 0.0-5.0 LYMPHOCYTE % (test code=LY%) 14.2 % 25.0-55.0 MONOCYTE % (test code=MO%) 9.5 % 0.0-10.0 EOSINOPHIL % (test code=EO%) 0.1 % 0.0-5.0 BASOPHIL % (test code=BA%) 0.2 % 0.0-1.0 NUCLEATED RBC % (test code=NRBC%) 0.2 % 0-0 NEUTROPHIL # (test code=NT#) 7.06 K/mm3 1.8-7.7 IMMATURE GRANULOCYTE # (test code=IG#) 0.07 x10 3/uL 0-0.03 LYMPHOCYTE # (test code=LY#) 1.33 K/mm3 1.0-5.0 MONOCYTE # (test code=MO#) 0.89 K/mm3 0-0.8 EOSINOPHIL # (test code=EO#) 0.01 K/mm3 0.0-0.5 BASOPHIL # (test code=BA#) 0.02 K/mm3 0.0-0.2 NUCLEATED RBC # (test code=NRBC#) 0.02 K/mm3 0.0-0.1 MANUAL DIFF REQUIRED (test code=MDIFF) NO, ONLY SCAN NEEDED DIFFERENTIAL [id number] 17:06:00* Test Item Value Reference Range Comments STAIN ACCEPTABILITY (test code=STN ACCEPTABLE) CABOT RINGS (test code=CAB) MORPHOLOGY COMMENT (test code=MOC) PLATELET ESTIMATE (test code=PLTEST) PLATELET MORPHOLOGY (test code=PLTMORPH) CBC W/AUTO [id number] 17:06:00* Test Item Value Reference Range Comments WHITE BLOOD CELL (test code=WBC) 9.4 K/mm3 4.5-12.5 RED BLOOD CELL (test code=RBC) 2.61 mill/mm3 4.0-5.8 HEMOGLOBIN (test code=HGB) 7.9 gram/dL 13.0-17.5 HEMATOCRIT (test code=HCT) 24.4 % 42.0-52.0 MEAN CELL VOLUME (test code=MCV) 93.5 fL 80-98 MEAN CELL HGB (test code=MCH) 30.3 picogram 27.0-33.0 MEAN CELL HGB CONCETRATION (test code=MCHC) 32.4 gram/dL 33.0-36.0 RED CELL DISTRIBUTION WIDTH (test code=RDW) 14.1 % 11.6-16.2 RED CELL DISTRIBUTION WIDTH SD (test code=RDW-SD) 48.1 fL 37.0-51.0 PLATELET COUNT (test code=PLT) 97 K/mm3 150-450 RESULT VERIFIED BY REPEAT ANALYSIS MEAN PLATELET VOLUME (test code=MPV) 11.6 fL 6.7-11.0 NEUTROPHIL % (test code=NT%) 75.3 % 39.0-69.0 IMMATURE GRANULOCYTE % (test code=IG%) 0.7 % 0.0-5.0 LYMPHOCYTE % (test code=LY%) 14.2 % 25.0-55.0 MONOCYTE % (test code=MO%) 9.5 % 0.0-10.0 EOSINOPHIL % (test code=EO%) 0.1 % 0.0-5.0 BASOPHIL % (test code=BA%) 0.2 % 0.0-1.0 NUCLEATED RBC % (test code=NRBC%) 0.2 % 0-0 NEUTROPHIL # (test code=NT#) 7.06 K/mm3 1.8-7.7 IMMATURE GRANULOCYTE # (test code=IG#) 0.07 x10 3/uL 0-0.03 LYMPHOCYTE # (test code=LY#) 1.33 K/mm3 1.0-5.0 MONOCYTE # (test code=MO#) 0.89 K/mm3 0-0.8 EOSINOPHIL # (test code=EO#) 0.01 K/mm3 0.0-0.5 BASOPHIL # (test code=BA#) 0.02 K/mm3 0.0-0.2 NUCLEATED RBC # (test code=NRBC#) 0.02 K/mm3 0.0-0.1 MANUAL DIFF REQUIRED (test code=MDIFF) NO, ONLY SCAN NEEDED DIFFERENTIAL [id number] 17:06:00* Test Item Value Reference Range Comments STAIN ACCEPTABILITY (test code=STN ACCEPTABLE) MORPHOLOGY COMMENT (test code=MOC) PLATELET ESTIMATE (test code=PLTEST) PLATELET MORPHOLOGY (test code=PLTMORPH) CBC W/AUTO [id number] 17:06:00* Test Item Value Reference Range Comments WHITE BLOOD CELL (test code=WBC) 9.4 K/mm3 4.5-12.5 RED BLOOD CELL (test code=RBC) 2.61 mill/mm3 4.0-5.8 HEMOGLOBIN (test code=HGB) 7.9 gram/dL 13.0-17.5 HEMATOCRIT (test code=HCT) 24.4 % 42.0-52.0 MEAN CELL VOLUME (test code=MCV) 93.5 fL 80-98 MEAN CELL HGB (test code=MCH) 30.3 picogram 27.0-33.0 MEAN CELL HGB CONCETRATION (test code=MCHC) 32.4 gram/dL 33.0-36.0 RED CELL DISTRIBUTION WIDTH (test code=RDW) 14.1 % 11.6-16.2 RED CELL DISTRIBUTION WIDTH SD (test code=RDW-SD) 48.1 fL 37.0-51.0 PLATELET COUNT (test code=PLT) 97 K/mm3 150-450 RESULT VERIFIED BY REPEAT ANALYSIS MEAN PLATELET VOLUME (test code=MPV) 11.6 fL 6.7-11.0 NEUTROPHIL % (test code=NT%) 75.3 % 39.0-69.0 IMMATURE GRANULOCYTE % (test code=IG%) 0.7 % 0.0-5.0 LYMPHOCYTE % (test code=LY%) 14.2 % 25.0-55.0 MONOCYTE % (test code=MO%) 9.5 % 0.0-10.0 EOSINOPHIL % (test code=EO%) 0.1 % 0.0-5.0 BASOPHIL % (test code=BA%) 0.2 % 0.0-1.0 NUCLEATED RBC % (test code=NRBC%) 0.2 % 0-0 NEUTROPHIL # (test code=NT#) 7.06 K/mm3 1.8-7.7 IMMATURE GRANULOCYTE # (test code=IG#) 0.07 x10 3/uL 0-0.03 LYMPHOCYTE # (test code=LY#) 1.33 K/mm3 1.0-5.0 MONOCYTE # (test code=MO#) 0.89 K/mm3 0-0.8 EOSINOPHIL # (test code=EO#) 0.01 K/mm3 0.0-0.5 BASOPHIL # (test code=BA#) 0.02 K/mm3 0.0-0.2 NUCLEATED RBC # (test code=NRBC#) 0.02 K/mm3 0.0-0.1 MANUAL DIFF REQUIRED (test code=MDIFF) NO, ONLY SCAN NEEDED DIFFERENTIAL [id number] 17:06:00* Test Item Value Reference Range Comments STAIN ACCEPTABILITY (test code=STN ACCEPTABLE) CABOT RINGS (test code=CAB) MORPHOLOGY COMMENT (test code=MOC) PLATELET ESTIMATE (test code=PLTEST) PLATELET MORPHOLOGY (test code=PLTMORPH) HGB [id number] 12:16:00* Test Item Value Reference Range Comments HEMOGLOBIN (test code=HGB) 6.7 gram/dL 13.0-17.5 HEMATOCRIT (test code=HCT) 21.4 % 42.0-52.0 Results called to [id number] by V.LAB.DD 12/04/18 1216Critical results verified and read back by Nurse? Y [id number] 11:26:00* Test Item Value Reference Range Comments GLUBED (test code=GLUBED) 111 mg/dL 74-106 Performed by certified food production machine operator at [facility] [id number] 08:43:00* Test Item Value Reference Range Comments GLUBED (test code=GLUBED) 128 mg/dL 74-106 Performed by certified food production machine operator at [facility] HGB [id number] 08:40:00* Test Item Value Reference Range Comments HEMOGLOBIN (test code=HGB) 6.4 gram/dL 13.0-17.5 HEMATOCRIT (test code=HCT) 19.7 % 42.0-52.0 Results called to [id number] by V.LAB.JQ 12/04/18 0840Critical results verified and read back by Nurse? Y SPECIMEN COMMENTS: REPEAT DUE TO HGB 6.3 THIS AMCALCIUM [id number] 08:33:00* Test Item Value Reference Range Comments CALCIUM IONIZED (test code=CYNTHIA) 1.24 mmol/L 1.12-1.32 BASIC METABOLIC [id number] 07:27:00* Test Item Value Reference Range Comments SODIUM (test code=NA) 143 mmol/L 136-145 POTASSIUM (test code=K) 4.3 mmol/L 3.5-5.1 CHLORIDE (test code=CL) 112.0 mmol/L 98-107 CARBON DIOXIDE (test code=CO2) 23.0 mmol/L 21-32 ANION GAP (test code=GAP) 12.3 10-20 GLUCOSE (test code=GLU) 143 mg/dL 74-106 BLOOD UREA NITROGEN (test code=BUN) 21 mg/dL 7-18 GLOMERULAR FILTRATION RATE (test code=GFR) 50 mL/min >=60 Estimated GFR by using Modified MDRD formula.Chronic kidney disease is defined as either kidney damageor GFR <60 mL/min/1.73 m2 for >3 months. CREATININE (test code=CREAT) 1.40 mg/dL 0.7-1.3 BUN/CREATININE RATIO (test code=BUN/CREA) 15.6 10-20 CALCIUM (test code=CA) 7.4 mg/dL 8.5-10.1 [id number] 07:27:00* Test Item Value Reference Range Comments PHOSPHORUS (test code=PHOS) 3.5 mg/dL 2.5-4.9 [id number] 07:27:00* Test Item Value Reference Range Comments MAGNESIUM (test code=MAG) 2.2 mg/dL 1.8-2.4 CBC W/AUTO [id number] 07:21:00* Test Item Value Reference Range Comments WHITE BLOOD CELL (test code=WBC) 12.6 K/mm3 4.5-12.5 RED BLOOD CELL (test code=RBC) 2.07 mill/mm3 4.0-5.8 HEMOGLOBIN (test code=HGB) 6.3 gram/dL 13.0-17.5 HEMATOCRIT (test code=HCT) 20.2 % 42.0-52.0 Results called to [id number] by LEDY 12/04/18 0721Critical results verified and read back by Nurse? Y MEAN CELL VOLUME (test code=MCV) 97.6 fL 80-98 MEAN CELL HGB (test code=MCH) 30.4 picogram 27.0-33.0 MEAN CELL HGB CONCETRATION (test code=MCHC) 31.2 gram/dL 33.0-36.0 RED CELL DISTRIBUTION WIDTH (test code=RDW) 12.6 % 11.6-16.2 RED CELL DISTRIBUTION WIDTH SD (test code=RDW-SD) 44.7 fL 37.0-51.0 PLATELET COUNT (test code=PLT) 147 K/mm3 150-450 MEAN PLATELET VOLUME (test code=MPV) 11.8 fL 6.7-11.0 NEUTROPHIL % (test code=NT%) 73.7 % 39.0-69.0 IMMATURE GRANULOCYTE % (test code=IG%) 0.6 % 0.0-5.0 LYMPHOCYTE % (test code=LY%) 15.4 % 25.0-55.0 MONOCYTE % (test code=MO%) 10.0 % 0.0-10.0 EOSINOPHIL % (test code=EO%) 0.1 % 0.0-5.0 BASOPHIL % (test code=BA%) 0.2 % 0.0-1.0 NUCLEATED RBC % (test code=NRBC%) 0.0 % 0-0 NEUTROPHIL # (test code=NT#) 9.25 K/mm3 1.8-7.7 IMMATURE GRANULOCYTE # (test code=IG#) 0.08 x10 3/uL 0-0.03 LYMPHOCYTE # (test code=LY#) 1.93 K/mm3 1.0-5.0 MONOCYTE # (test code=MO#) 1.26 K/mm3 0-0.8 EOSINOPHIL # (test code=EO#) 0.01 K/mm3 0.0-0.5 BASOPHIL # (test code=BA#) 0.02 K/mm3 0.0-0.2 NUCLEATED RBC # (test code=NRBC#) 0.00 K/mm3 0.0-0.1 BASIC METABOLIC [id number] 07:20:00* Test Item Value Reference Range Comments SODIUM (test code=NA) 143 mmol/L 136-145 POTASSIUM (test code=K) 4.3 mmol/L 3.5-5.1 CHLORIDE (test code=CL) 112.0 mmol/L 98-107 CARBON DIOXIDE (test code=CO2) mmol/L 21-32 ANION GAP (test code=GAP) 10-20 GLUCOSE (test code=GLU) mg/dL 74-106 BLOOD UREA NITROGEN (test code=BUN) mg/dL 7-18 GLOMERULAR FILTRATION RATE (test code=GFR) mL/min >=60 CREATININE (test code=CREAT) mg/dL 0.7-1.3 BUN/CREATININE RATIO (test code=BUN/CREA) 10-20 CALCIUM (test code=CA) mg/dL 8.5-10.1 [id number] 07:20:00* Test Item Value Reference Range Comments PHOSPHORUS (test code=PHOS) mg/dL 2.5-4.9 [id number] 07:20:00* Test Item Value Reference Range Comments MAGNESIUM (test code=MAG) mg/dL 1.8-2.4 [id number] 06:41:00* Test Item Value Reference Range Comments GLUBED (test code=GLUBED) 133 mg/dL 74-106 Performed by certified food production machine operator at [facility] - XR CHEST 1 [id number] 05:22:00 FAX: Emmanuel Hammonds MD [phone] [place]: B St: ADM FAX: Martir Alvarado MD [phone] FAX: Jass Loaiza MD [phone] FAX: [facility] [phone] Name: SANDRITA MORGAN FRIAS [facility] : 1950 Age/S: 68/M [address] [facility] Unit #: [id number] Loc: [place] [address] [address] Phys: Jass Hudson MD Acct: [id number] Dis Date: Status: ADM IN PHONE #: [phone] Exam D ate: 12/04/2018 0500 FAX #: [phone] Reason: T O RE-EVALUATE CHEST TUBE POSITIONS EXAMS: CPT CODE: [id number] XR CHEST 1 V [id number] Dictation location: H37. CHEST, FRONTAL VIEW HISTORY: TO RE-EVALUATE CHEST TUBE POSITIONS FINDINGS: Since 12/03/18, the Dahlgren- Nuzhat catheter has been removed. The right IJ central venous line is noted within the SVC. The mediastinal and left pleural drains are stable in po sition. No pneumothorax. Continued cardiomegaly with mild vascular conge stion. Aorta is partially calcified. Sternotomy wires. I MPRESSION: Interval removal of the Dahlgren-Nuzhat catheter. Stable mild vascular congestion, mediastinal and pleural drains. No pneumothorax. at 0522 Reported and signed by: Jim Cleary M.D. CC: Emmanuel Ramirez; Martir Javed; Jass Hudson MD; Daryl Cohen Technologist: Abraham Sparks Trnrird Date/Time/By: 019 (0522) : By: [email or web address] Orig Print D/T: S: 12/04/2018 (0530) PAGE 1 Signed Report [id number] 17:03:00* Test Item Value Reference Range Comments GLUBED (test code=GLUBED) 131 mg/dL 74-106 Performed by certified food production machine operator at [facility] ARTERIAL BLOOD [id number] 14:00:00* Test Item Value Reference Range Comments ARTERIAL BLOOD GAS PH (test code=PHA) 7.41 7.35-7.45 ARTERIAL BLOOD GAS PCO2 (test code=PCO2A) 33.8 mm Hg 35-45 ARTERIAL BLOOD GAS PO2 (test code=PO2A) 123.9 mmHg 80-100 BICARBONATE TOTAL HCO3 (test code=HCO3) 21.1 mmol/L 23.0-27.0 BASE EXCESS (test code=OLIVIA) -2.9 mmol/L -3.0-5.0 ABG O2 SATURATION (test code=SATA) 98.0 % 90.0-98.0 ABG TYPE (test code=TYPEA) Arterial FIO2 (test code=FIO2A) 40.0 MODIFIED ALLENS (test code=MODALL) Yes CHECK PERFORMED SODIUM (test code=NA/ABG) 135.8 mEq/L 135-148 POTASSIUM (test code=K/ABG) 4.1 mEq/L 3.5-4.5 CHLORIDE (test code=CL/ABG) 104 mEq/L 98-106 GLUCOSE (test code=GLU/ABG) 148 mg/dL 74-99 HEMATOCRIT (test code=HCT/ABG) 31 % 42-52 IONIZED CALCIUM (test code=CAIABG) 0.99 mmol/L 1.1-1.37 TOTAL HGB (test code=THB) 10.5 gram/dL 13.0-17.5 HGB O2 SAT (test code=HBOSAT) 97.0 % 94.00-98.00 CARBOXYHEMOGLOBIN (test code=HOHGBT) 0.2 %totalHg 0.5-1.5 Results called to and read back by DR. Cordoba 12:01 - 12/02/2018; by MAGGY METHEMOGLOBIN (test code=METHGB) 0.8 % 0.0-1.50 O2 CONTENT (test code=O2CT) 14.5 % vol 18.0-22.0 ARTERIAL BLOOD [id number] 14:00:00* Test Item Value Reference Range Comments ARTERIAL BLOOD GAS PH (test code=PHA) 7.43 7.35-7.45 ARTERIAL BLOOD GAS PCO2 (test code=PCO2A) 34.2 mm Hg 35-45 ARTERIAL BLOOD GAS PO2 (test code=PO2A) 147.6 mmHg 80-100 BICARBONATE TOTAL HCO3 (test code=HCO3) 22.2 mmol/L 23.0-27.0 BASE EXCESS (test code=OLIVIA) -1.5 mmol/L -3.0-5.0 ABG O2 SATURATION (test code=SATA) 98.6 % 90.0-98.0 ABG TYPE (test code=TYPEA) Arterial FIO2 (test code=FIO2A) 40.0 MODIFIED ALLENS (test code=MODALL) Yes CHECK PERFORMED SODIUM (test code=NA/ABG) 138.0 mEq/L 135-148 POTASSIUM (test code=K/ABG) 4.0 mEq/L 3.5-4.5 CHLORIDE (test code=CL/ABG) 105 mEq/L 98-106 GLUCOSE (test code=GLU/ABG) 101 mg/dL 74-99 HEMATOCRIT (test code=HCT/ABG) 34 % 42-52 IONIZED CALCIUM (test code=CAIABG) 1.08 mmol/L 1.1-1.37 TOTAL HGB (test code=THB) 11.7 gram/dL 13.0-17.5 HGB O2 SAT (test code=HBOSAT) 97.6 % 94.00-98.00 CARBOXYHEMOGLOBIN (test code=HOHGBT) 0.4 %totalHg 0.5-1.5 Results called to and read back by DR. Cordoba 09:51 - 12/02/2018; by MAGGY METHEMOGLOBIN (test code=METHGB) 0.6 % 0.0-1.50 O2 CONTENT (test code=O2CT) 16.3 % vol 18.0-22.0 ARTERIAL BLOOD [id number] 13:59:00* Test Item Value Reference Range Comments ARTERIAL BLOOD GAS PH (test code=PHA) 7.36 7.35-7.45 ARTERIAL BLOOD GAS PCO2 (test code=PCO2A) 35.9 mm Hg 35-45 ARTERIAL BLOOD GAS PO2 (test code=PO2A) 135.4 mmHg 80-100 BICARBONATE TOTAL HCO3 (test code=HCO3) 20.0 mmol/L 23.0-27.0 BASE EXCESS (test code=OLIVIA) -4.9 mmol/L -3.0-5.0 Results called to and read back by DR. Cordoba 14:36 - 12/02/2018; by MAGGY ABG O2 SATURATION (test code=SATA) 98.2 % 90.0-98.0 ABG TYPE (test code=TYPEA) Arterial FIO2 (test code=FIO2A) 40.0 MODIFIED ALLENS (test code=MODALL) Yes CHECK PERFORMED SODIUM (test code=NA/ABG) 136.3 mEq/L 135-148 POTASSIUM (test code=K/ABG) 3.9 mEq/L 3.5-4.5 CHLORIDE (test code=CL/ABG) 110 mEq/L 98-106 GLUCOSE (test code=GLU/ABG) 157 mg/dL 74-99 HEMATOCRIT (test code=HCT/ABG) 23 % 42-52 IONIZED CALCIUM (test code=CAIABG) 0.93 mmol/L 1.1-1.37 TOTAL HGB (test code=THB) 7.9 gram/dL 13.0-17.5 HGB O2 SAT (test code=HBOSAT) 96.8 % 94.00-98.00 CARBOXYHEMOGLOBIN (test code=HOHGBT) 0.6 %totalHg 0.5-1.5 METHEMOGLOBIN (test code=METHGB) 0.8 % 0.0-1.50 O2 CONTENT (test code=O2CT) 11.1 % vol 18.0-22.0 ARTERIAL BLOOD [id number] 13:58:00* Test Item Value Reference Range Comments ARTERIAL BLOOD GAS PH (test code=PHA) 7.34 7.35-7.45 ARTERIAL BLOOD GAS PCO2 (test code=PCO2A) 37.8 mm Hg 35-45 ARTERIAL BLOOD GAS PO2 (test code=PO2A) 95.1 mmHg 80-100 BICARBONATE TOTAL HCO3 (test code=HCO3) 20.0 mmol/L 23.0-27.0 BASE EXCESS (test code=OLIVIA) -5.3 mmol/L -3.0-5.0 Results called to and read back by DR. Cordoba 15:48 - 12/02/2018; by ABG O2 SATURATION (test code=SATA) 96.3 % 90.0-98.0 ABG TYPE (test code=TYPEA) Arterial FIO2 (test code=FIO2A) 40.0 MODIFIED ALLENS (test code=MODALL) Yes CHECK PERFORMED SODIUM (test code=NA/ABG) 135.3 mEq/L 135-148 POTASSIUM (test code=K/ABG) 4.0 mEq/L 3.5-4.5 CHLORIDE (test code=CL/ABG) 110 mEq/L 98-106 GLUCOSE (test code=GLU/ABG) 151 mg/dL 74-99 HEMATOCRIT (test code=HCT/ABG) 24 % 42-52 IONIZED CALCIUM (test code=CAIABG) 1.01 mmol/L 1.1-1.37 TOTAL HGB (test code=THB) 8.1 gram/dL 13.0-17.5 HGB O2 SAT (test code=HBOSAT) 95.0 % 94.00-98.00 CARBOXYHEMOGLOBIN (test code=HOHGBT) 0.5 %totalHg 0.5-1.5 METHEMOGLOBIN (test code=METHGB) 0.9 % 0.0-1.50 O2 CONTENT (test code=O2CT) 11.0 % vol 18.0-22.0 [id number] 12:18:00* Test Item Value Reference Range Comments GLUBED (test code=GLUBED) 98 mg/dL 74-106 Performed by certified food production machine operator at [facility] ARTERIAL BLOOD [id number] 11:33:00* Test Item Value Reference Range Comments ARTERIAL BLOOD GAS PH (test code=PHA) 7.31 7.35-7.45 ARTERIAL BLOOD GAS PCO2 (test code=PCO2A) 43.7 mm Hg 35-45 ARTERIAL BLOOD GAS PO2 (test code=PO2A) 142.9 mmHg 80-100 BICARBONATE TOTAL HCO3 (test code=HCO3) 21.7 mmol/L 23.0-27.0 BASE EXCESS (test code=OLIVIA) -4.4 mmol/L -3.0-5.0 Results called to and read back by L-3 GCS : - 12/02/2018; by Georgie ABCandie O2 SATURATION (test code=SATA) 97.8 % 90.0-98.0 ABG TYPE (test code=TYPEA) Arterial FIO2 (test code=FIO2A) 40.0 ABG VENT MODE (test code=MODEA) SIMV ABG VENT RESP RATE (test code=RRA) 10.0 per min ABG TIDAL VOLUME (test code=TVA) 450.0 mL ABG PEEP (test code=PEEPA) 5.0 cmH2O ABG PRESSURE SUPPORT (test code=PSABG) 10 cmH2O ABG SITE (test code=SITEA) ARTERIAL LINE MODIFIED ALLENS (test code=MODALL) Unable CHECK PERFORMED HEMATOCRIT (test code=HCT/ABG) 30 % 42-52 TOTAL HGB (test code=THB) 10.2 gram/dL 13.0-17.5 HGB O2 SAT (test code=HBOSAT) 97.0 % 94.00-98.00 CARBOXYHEMOGLOBIN (test code=HOHGBT) 0.3 %totalHg 0.5-1.5 Results called to and read back by L-3 GCS 12/02/2018; by Georgie METHEMOGLOBIN (test code=METHGB) 0.5 % 0.0-1.50 O2 CONTENT (test code=O2CT) 14.2 % vol 18.0-22.0 BASIC METABOLIC [id number] 07:43:00* Test Item Value Reference Range Comments SODIUM (test code=NA) 142 mmol/L 136-145 POTASSIUM (test code=K) 4.2 mmol/L 3.5-5.1 CHLORIDE (test code=CL) 113.0 mmol/L 98-107 CARBON DIOXIDE (test code=CO2) 23.0 mmol/L 21-32 ANION GAP (test code=GAP) 10.2 10-20 GLUCOSE (test code=GLU) 134 mg/dL 74-106 BLOOD UREA NITROGEN (test code=BUN) 10 mg/dL 7-18 GLOMERULAR FILTRATION RATE (test code=GFR) > 60 mL/min >=60 Estimated GFR by using Modified MDRD formula.Chronic kidney disease is defined as either kidney damageor GFR <60 mL/min/1.73 m2 for >3 months. CREATININE (test code=CREAT) 0.90 mg/dL 0.7-1.3 BUN/CREATININE RATIO (test code=BUN/CREA) 11.1 10-20 CALCIUM (test code=CA) 7.5 mg/dL 8.5-10.1 [id number] 07:43:00* Test Item Value Reference Range Comments PHOSPHORUS (test code=PHOS) 3.3 mg/dL 2.5-4.9 [id number] 07:43:00* Test Item Value Reference Range Comments MAGNESIUM (test code=MAG) 2.0 mg/dL 1.8-2.4 CALCIUM [id number] 07:43:00* Test Item Value Reference Range Comments CALCIUM IONIZED (test code=CYNTHIA) 1.26 mmol/L 1.12-1.32 BASIC METABOLIC [id number] 07:19:00* Test Item Value Reference Range Comments SODIUM (test code=NA) 142 mmol/L 136-145 POTASSIUM (test code=K) 4.2 mmol/L 3.5-5.1 CHLORIDE (test code=CL) 113.0 mmol/L 98-107 CARBON DIOXIDE (test code=CO2) 23.0 mmol/L 21-32 ANION GAP (test code=GAP) 10.2 10-20 GLUCOSE (test code=GLU) 134 mg/dL 74-106 BLOOD UREA NITROGEN (test code=BUN) 10 mg/dL 7-18 GLOMERULAR FILTRATION RATE (test code=GFR) > 60 mL/min >=60 Estimated GFR by using Modified MDRD formula.Chronic kidney disease is defined as either kidney damageor GFR <60 mL/min/1.73 m2 for >3 months. CREATININE (test code=CREAT) 0.90 mg/dL 0.7-1.3 BUN/CREATININE RATIO (test code=BUN/CREA) 11.1 10-20 CALCIUM (test code=CA) 7.5 mg/dL 8.5-10.1 [id number] 07:19:00* Test Item Value Reference Range Comments PHOSPHORUS (test code=PHOS) 3.3 mg/dL 2.5-4.9 [id number] 07:19:00* Test Item Value Reference Range Comments MAGNESIUM (test code=MAG) 2.0 mg/dL 1.8-2.4 CALCIUM [id number] 07:19:00* Test Item Value Reference Range Comments CALCIUM IONIZED (test code=CYNTHIA) mmol/L 1.12-1.32 CBC W/AUTO [id number] 07:02:00* Test Item Value Reference Range Comments WHITE BLOOD CELL (test code=WBC) 8.9 K/mm3 4.5-12.5 RED BLOOD CELL (test code=RBC) 2.62 mill/mm3 4.0-5.8 HEMOGLOBIN (test code=HGB) 8.0 gram/dL 13.0-17.5 HEMATOCRIT (test code=HCT) 24.7 % 42.0-52.0 MEAN CELL VOLUME (test code=MCV) 94.3 fL 80-98 MEAN CELL HGB (test code=MCH) 30.5 picogram 27.0-33.0 MEAN CELL HGB CONCETRATION (test code=MCHC) 32.4 gram/dL 33.0-36.0 RED CELL DISTRIBUTION WIDTH (test code=RDW) 12.1 % 11.6-16.2 RED CELL DISTRIBUTION WIDTH SD (test code=RDW-SD) 41.9 fL 37.0-51.0 PLATELET COUNT (test code=PLT) 132 K/mm3 150-450 MEAN PLATELET VOLUME (test code=MPV) 12.1 fL 6.7-11.0 NEUTROPHIL % (test code=NT%) 82.2 % 39.0-69.0 IMMATURE GRANULOCYTE % (test code=IG%) 0.2 % 0.0-5.0 LYMPHOCYTE % (test code=LY%) 9.4 % 25.0-55.0 MONOCYTE % (test code=MO%) 8.1 % 0.0-10.0 EOSINOPHIL % (test code=EO%) 0.0 % 0.0-5.0 BASOPHIL % (test code=BA%) 0.1 % 0.0-1.0 NUCLEATED RBC % (test code=NRBC%) 0.0 % 0-0 NEUTROPHIL # (test code=NT#) 7.34 K/mm3 1.8-7.7 IMMATURE GRANULOCYTE # (test code=IG#) 0.02 x10 3/uL 0-0.03 LYMPHOCYTE # (test code=LY#) 0.84 K/mm3 1.0-5.0 MONOCYTE # (test code=MO#) 0.72 K/mm3 0-0.8 EOSINOPHIL # (test code=EO#) 0.00 K/mm3 0.0-0.5 BASOPHIL # (test code=BA#) 0.01 K/mm3 0.0-0.2 NUCLEATED RBC # (test code=NRBC#) 0.00 K/mm3 0.0-0.1 BASIC METABOLIC [id number] 07:01:00* Test Item Value Reference Range Comments SODIUM (test code=NA) 142 mmol/L 136-145 POTASSIUM (test code=K) 4.2 mmol/L 3.5-5.1 CHLORIDE (test code=CL) 113.0 mmol/L 98-107 CARBON DIOXIDE (test code=CO2) mmol/L 21-32 ANION GAP (test code=GAP) 10-20 GLUCOSE (test code=GLU) mg/dL 74-106 BLOOD UREA NITROGEN (test code=BUN) mg/dL 7-18 GLOMERULAR FILTRATION RATE (test code=GFR) mL/min >=60 CREATININE (test code=CREAT) mg/dL 0.7-1.3 BUN/CREATININE RATIO (test code=BUN/CREA) 10-20 CALCIUM (test code=CA) mg/dL 8.5-10.1 [id number] 07:01:00* Test Item Value Reference Range Comments PHOSPHORUS (test code=PHOS) mg/dL 2.5-4.9 [id number] 07:01:00* Test Item Value Reference Range Comments MAGNESIUM (test code=MAG) mg/dL 1.8-2.4 CALCIUM [id number] 07:01:00* Test Item Value Reference Range Comments CALCIUM IONIZED (test code=CYNTHIA) mmol/L 1.12-1.32 [id number] 04:17:00* Test Item Value Reference Range Comments GLUBED (test code=GLUBED) 133 mg/dL 74-106 Performed by certified food production machine operator at [facility] PROTHROMBIN [id number] 03:44:00* Test Item Value Reference Range Comments PROTHROMBIN TIME PATIENT (test code=PTP) 13.3 seconds 9.0-14.0 INTERNATIONAL NORMAL RATIO (test code=INR) 1.1 0.8-1.2 The therapeutic range for oral anticoagulant therapy formost indications is an international normalized ratio (INR)of between 2.0 and 3.0. The recommended therapeutic INRrange for various clinical situations is listed below: Clinical Situation INR range Pulmonary e mbolism treatment (2.0-3.0)Venous thrombosis treatmentVenous thrombosis prophylaxis (high risk surgery)Prevention of systemic embolism from: Acute myocardial infarction Valvular heart disease Atrial fibrillation Mechanical prosthetic heart valves (2.5-3.5) IS PATIENT ON ANTICOAGULANTS? NTHROMBOPLASTIN TIME [id number] 03:44:00* Test Item Value Reference Range Comments THROMBOPLASTIN TIME PARTIAL (test code=PTT) 33.7 seconds 25.0-36.5 IS PATIENT ON ANTICOAGULANTS? NCBC W/AUTO [id number] 03:39:00* Test Item Value Reference Range Comments WHITE BLOOD CELL (test code=WBC) 9.3 K/mm3 4.5-12.5 RED BLOOD CELL (test code=RBC) 2.69 mill/mm3 4.0-5.8 HEMOGLOBIN (test code=HGB) 8.2 gram/dL 13.0-17.5 HEMATOCRIT (test code=HCT) 25.6 % 42.0-52.0 MEAN CELL VOLUME (test code=MCV) 95.2 fL 80-98 MEAN CELL HGB (test code=MCH) 30.5 picogram 27.0-33.0 MEAN CELL HGB CONCETRATION (test code=MCHC) 32.0 gram/dL 33.0-36.0 RED CELL DISTRIBUTION WIDTH (test code=RDW) 12.1 % 11.6-16.2 RED CELL DISTRIBUTION WIDTH SD (test code=RDW-SD) 41.4 fL 37.0-51.0 PLATELET COUNT (test code=PLT) 121 K/mm3 150-450 MEAN PLATELET VOLUME (test code=MPV) 11.8 fL 6.7-11.0 NEUTROPHIL % (test code=NT%) 87.1 % 39.0-69.0 IMMATURE GRANULOCYTE % (test code=IG%) 0.8 % 0.0-5.0 LYMPHOCYTE % (test code=LY%) 6.4 % 25.0-55.0 MONOCYTE % (test code=MO%) 5.6 % 0.0-10.0 EOSINOPHIL % (test code=EO%) 0.0 % 0.0-5.0 BASOPHIL % (test code=BA%) 0.1 % 0.0-1.0 NUCLEATED RBC % (test code=NRBC%) 0.0 % 0-0 NEUTROPHIL # (test code=NT#) 8.07 K/mm3 1.8-7.7 IMMATURE GRANULOCYTE # (test code=IG#) 0.07 x10 3/uL 0-0.03 LYMPHOCYTE # (test code=LY#) 0.59 K/mm3 1.0-5.0 MONOCYTE # (test code=MO#) 0.52 K/mm3 0-0.8 EOSINOPHIL # (test code=EO#) 0.00 K/mm3 0.0-0.5 BASOPHIL # (test code=BA#) 0.01 K/mm3 0.0-0.2 NUCLEATED RBC # (test code=NRBC#) 0.00 K/mm3 0.0-0.1 MANUAL DIFF REQUIRED (test code=MDIFF) NO BASIC METABOLIC [id number] 03:18:00* Test Item Value Reference Range Comments SODIUM (test code=NA) 144 mmol/L 136-145 POTASSIUM (test code=K) 4.3 mmol/L 3.5-5.1 CHLORIDE (test code=CL) 113.0 mmol/L 98-107 CARBON DIOXIDE (test code=CO2) 22.0 mmol/L 21-32 ANION GAP (test code=GAP) 13.3 10-20 GLUCOSE (test code=GLU) 140 mg/dL 74-106 BLOOD UREA NITROGEN (test code=BUN) 10 mg/dL 7-18 GLOMERULAR FILTRATION RATE (test code=GFR) > 60 mL/min >=60 Estimated GFR by using Modified MDRD formula.Chronic kidney disease is defined as either kidney damageor GFR <60 mL/min/1.73 m2 for >3 months. CREATININE (test code=CREAT) 0.80 mg/dL 0.7-1.3 BUN/CREATININE RATIO (test code=BUN/CREA) 11.9 10-20 CALCIUM (test code=CA) 7.4 mg/dL 8.5-10.1 [id number] 03:18:00* Test Item Value Reference Range Comments PHOSPHORUS (test code=PHOS) 3.2 mg/dL 2.5-4.9 [id number] 03:18:00* Test Item Value Reference Range Comments MAGNESIUM (test code=MAG) 1.9 mg/dL 1.8-2.4 CALCIUM [id number] 03:18:00* Test Item Value Reference Range Comments CALCIUM IONIZED (test code=CYNTHIA) 1.19 mmol/L 1.12-1.32 CPK-MB [id number] 03:18:00* Test Item Value Reference Range Comments CREATINE KINASE (CK) (test code=CK) 398 IUnit/L 26-208 CKMB (test code=CKMBT) 13.7 ng/mL 0-6.0 RELATIVE % INDEX (test code=REL%) 3.44 % 0.00-2.50 "If the total CK is elevated, the CKMB Fraction must beinterpreted as a Relative % Index, Normal is less than 2.5%"NOTE: Relative % Index is not valid with a normal total CK. [id number] 03:18:00* Test Item Value Reference Range Comments TROPONIN-I (test code=TROPI) 7.650 ng/mL 0-0.045 RESULT VERIFIED BY REPEAT ANALYSIS [id number] 03:06:00* Test Item Value Reference Range Comments GLUBED (test code=GLUBED) 140 mg/dL 74-106 Performed by certified food production machine operator at [facility] - XR CHEST 1 [id number] 03:05:00 FAX: Emmanuel Hammonds MD [phone] [place]: St: ADM FAX: Bairon Ramirez FAX: Maritr Alvarado MD [phone] FAX: [facility] [phone] Name: SANDRITA MORGAN FRIAS [facility] : 1950 Age/S: 68/M [address] [facility] Unit #: [id number] Loc: [address] [address] Phys: Bairon Ramirez Acct: [id number] Dis Date: Status: ADM IN PHONE #: [phone] Exam D ate: 12/03/2018 0233 FAX #: [phone] Reason: C HEST TUBES EXAMS: CPT CODE: [id number] XR CHEST 1 V [id number] Dictation location: H37. CHEST, FRONTAL VIEW HISTORY: CHEST TUBES FINDINGS: Since 12/02/18, the endotracheal tube has been re moved. The left chest tubes are stable in position. No pneumothorax. Sm all left pleural effusion. Cardiomegaly with mild central vascular conges tion. The Dahlgren-Nuzhat catheter and right IJ central venous line are stable in position. Mediastinal drain is also stable. Sternotomy wires. Degenerative changes affect the thoracic spine. IMPRESSION: Interval removal of endotracheal tube. Stable evans pport lines and tubes. No pneumothorax. Cardiomegaly with mil d central vascular congestion. at 0305 Reported and signed by: Jim Cleary M.D. CC: Emmanuel Ramirez; Bairon Ramirez; Martir Javed; Daryl Cohen Technologist: STIVEN JOYCE, Trnscrd Date/Time/By: 12/03/2018 (0305) : By: [email or web address] Orig Print D/T: S: 12/03/2018 (0814) PAGE 1 Signed Report BASIC METABOLIC [id number] 03:02:00* Test Item Value Reference Range Comments SODIUM (test code=NA) 144 mmol/L 136-145 POTASSIUM (test code=K) 4.3 mmol/L 3.5-5.1 CHLORIDE (test code=CL) 113.0 mmol/L 98-107 CARBON DIOXIDE (test code=CO2) mmol/L 21-32 ANION GAP (test code=GAP) 10-20 GLUCOSE (test code=GLU) mg/dL 74-106 BLOOD UREA NITROGEN (test code=BUN) mg/dL 7-18 GLOMERULAR FILTRATION RATE (test code=GFR) mL/min >=60 CREATININE (test code=CREAT) mg/dL 0.7-1.3 BUN/CREATININE RATIO (test code=BUN/CREA) 10-20 CALCIUM (test code=CA) mg/dL 8.5-10.1 [id number] 03:02:00* Test Item Value Reference Range Comments PHOSPHORUS (test code=PHOS) mg/dL 2.5-4.9 [id number] 03:02:00* Test Item Value Reference Range Comments MAGNESIUM (test code=MAG) mg/dL 1.8-2.4 CALCIUM [id number] 03:02:00* Test Item Value Reference Range Comments CALCIUM IONIZED (test code=CYNTHIA) 1.19 mmol/L 1.12-1.32 BASIC METABOLIC [id number] 02:56:00* Test Item Value Reference Range Comments SODIUM (test code=NA) mmol/L 136-145 POTASSIUM (test code=K) mmol/L 3.5-5.1 CHLORIDE (test code=CL) mmol/L 98-107 CARBON DIOXIDE (test code=CO2) mmol/L 21-32 ANION GAP (test code=GAP) 10-20 GLUCOSE (test code=GLU) mg/dL 74-106 BLOOD UREA NITROGEN (test code=BUN) mg/dL 7-18 GLOMERULAR FILTRATION RATE (test code=GFR) mL/min >=60 CREATININE (test code=CREAT) mg/dL 0.7-1.3 BUN/CREATININE RATIO (test code=BUN/CREA) 10-20 CALCIUM (test code=CA) mg/dL 8.5-10.1 [id number] 02:56:00* Test Item Value Reference Range Comments PHOSPHORUS (test code=PHOS) mg/dL 2.5-4.9 [id number] 02:56:00* Test Item Value Reference Range Comments MAGNESIUM (test code=MAG) mg/dL 1.8-2.4 CALCIUM [id number] 02:56:00* Test Item Value Reference Range Comments CALCIUM IONIZED (test code=CYNTHIA) 1.19 mmol/L 1.12-1.32 [id number] 01:23:00* Test Item Value Reference Range Comments GLUBED (test code=GLUBED) 127 mg/dL 74-106 Performed by certified food production machine operator at [facility] [id number] 23:08:00* Test Item Value Reference Range Comments GLUBED (test code=GLUBED) 128 mg/dL 74-106 Performed by certified food production machine operator at [facility] CPK-MB [id number] 22:06:00* Test Item Value Reference Range Comments CREATINE KINASE (CK) (test code=CK) 340 IUnit/L 26-208 CKMB (test code=CKMBT) 17.3 ng/mL 0-6.0 RELATIVE % INDEX (test code=REL%) 5.09 % 0.00-2.50 "If the total CK is elevated, the CKMB Fraction must beinterpreted as a Relative % Index, Normal is less than 2.5%"NOTE: Relative % Index is not valid with a normal total CK. [id number] 22:06:00* Test Item Value Reference Range Comments TROPONIN-I (test code=TROPI) 6.410 ng/mL 0-0.045 CBC W/O [id number] 21:55:00* Test Item Value Reference Range Comments WHITE BLOOD CELL (test code=WBC) 11.7 K/mm3 4.5-12.5 RED BLOOD CELL (test code=RBC) 2.80 mill/mm3 4.0-5.8 HEMOGLOBIN (test code=HGB) 8.7 gram/dL 13.0-17.5 HEMATOCRIT (test code=HCT) 26.6 % 42.0-52.0 MEAN CELL VOLUME (test code=MCV) 95.0 fL 80-98 MEAN CELL HGB (test code=MCH) 31.1 picogram 27.0-33.0 MEAN CELL HGB CONCETRATION (test code=MCHC) 32.7 gram/dL 33.0-36.0 RED CELL DISTRIBUTION WIDTH (test code=RDW) 11.9 % 11.6-16.2 PLATELET COUNT (test code=PLT) 134 K/mm3 150-450 MEAN PLATELET VOLUME (test code=MPV) 11.2 fL 6.7-11.0 BASIC METABOLIC [id number] 21:51:00* Test Item Value Reference Range Comments SODIUM (test code=NA) 142 mmol/L 136-145 POTASSIUM (test code=K) 4.2 mmol/L 3.5-5.1 CHLORIDE (test code=CL) 113.0 mmol/L 98-107 CARBON DIOXIDE (test code=CO2) 23.0 mmol/L 21-32 ANION GAP (test code=GAP) 10.2 10-20 GLUCOSE (test code=GLU) 151 mg/dL 74-106 BLOOD UREA NITROGEN (test code=BUN) 9 mg/dL 7-18 GLOMERULAR FILTRATION RATE (test code=GFR) > 60 mL/min >=60 Estimated GFR by using Modified MDRD formula.Chronic kidney disease is defined as either kidney damageor GFR <60 mL/min/1.73 m2 for >3 months. CREATININE (test code=CREAT) 0.80 mg/dL 0.7-1.3 BUN/CREATININE RATIO (test code=BUN/CREA) 11.9 10-20 CALCIUM (test code=CA) 7.1 mg/dL 8.5-10.1 [id number] 21:51:00* Test Item Value Reference Range Comments PHOSPHORUS (test code=PHOS) 3.4 mg/dL 2.5-4.9 [id number] 21:51:00* Test Item Value Reference Range Comments MAGNESIUM (test code=MAG) 2.0 mg/dL 1.8-2.4 CALCIUM [id number] 21:50:00* Test Item Value Reference Range Comments CALCIUM IONIZED (test code=CYNTHIA) 1.20 mmol/L 1.12-1.32 BASIC METABOLIC [id number] 21:47:00* Test Item Value Reference Range Comments SODIUM (test code=NA) 142 mmol/L 136-145 POTASSIUM (test code=K) 4.2 mmol/L 3.5-5.1 CHLORIDE (test code=CL) 113.0 mmol/L 98-107 CARBON DIOXIDE (test code=CO2) mmol/L 21-32 ANION GAP (test code=GAP) 10-20 GLUCOSE (test code=GLU) mg/dL 74-106 BLOOD UREA NITROGEN (test code=BUN) mg/dL 7-18 GLOMERULAR FILTRATION RATE (test code=GFR) mL/min >=60 CREATININE (test code=CREAT) mg/dL 0.7-1.3 BUN/CREATININE RATIO (test code=BUN/CREA) 10-20 CALCIUM (test code=CA) mg/dL 8.5-10.1 [id number] 21:47:00* Test Item Value Reference Range Comments PHOSPHORUS (test code=PHOS) mg/dL 2.5-4.9 [id number] 21:47:00* Test Item Value Reference Range Comments MAGNESIUM (test code=MAG) mg/dL 1.8-2.4 [id number] 21:12:00* Test Item Value Reference Range Comments GLUBED (test code=GLUBED) 143 mg/dL 74-106 Performed by certified food production machine operator at [facility] [id number] 20:04:00* Test Item Value Reference Range Comments GLUBED (test code=GLUBED) 148 mg/dL 74-106 Performed by certified food production machine operator at [facility] [id number] 19:20:00* Test Item Value Reference Range Comments GLUBED (test code=GLUBED) 176 mg/dL 74-106 Performed by certified food production machine operator at [facility] [id number] 19:20:00* Test Item Value Reference Range Comments GLUBED (test code=GLUBED) 122 mg/dL 74-106 Performed by certified food production machine operator at [facility] [id number] 19:20:00* Test Item Value Reference Range Comments GLUBED (test code=GLUBED) 124 mg/dL 74-106 Performed by certified food production machine operator at [facility] PROTHROMBIN [id number] 18:19:00* Test Item Value Reference Range Comments PROTHROMBIN TIME PATIENT (test code=PTP) 17.0 seconds 9.0-14.0 INTERNATIONAL NORMAL RATIO (test code=INR) 1.5 0.8-1.2 The therapeutic range for oral anticoagulant therapy formost indications is an international normalized ratio (INR)of between 2.0 and 3.0. The recommended therapeutic INRrange for various clinical situations is listed below: Clinical Situation INR range Pulmonary e mbolism treatment (2.0-3.0)Venous thrombosis treatmentVenous thrombosis prophylaxis (high risk surgery)Prevention of systemic embolism from: Acute myocardial infarction Valvular heart disease Atrial fibrillation Mechanical prosthetic heart valves (2.5-3.5) IS PATIENT ON ANTICOAGULANTS? NTHROMBOPLASTIN TIME [id number] 18:19:00* Test Item Value Reference Range Comments THROMBOPLASTIN TIME PARTIAL (test code=PTT) 34.7 seconds 25.0-36.5 IS PATIENT ON ANTICOAGULANTS? NBASIC METABOLIC [id number] 18:00:00* Test Item Value Reference Range Comments SODIUM (test code=NA) 144 mmol/L 136-145 POTASSIUM (test code=K) 4.1 mmol/L 3.5-5.1 CHLORIDE (test code=CL) 115.0 mmol/L 98-107 CARBON DIOXIDE (test code=CO2) 23.0 mmol/L 21-32 ANION GAP (test code=GAP) 10.1 10-20 GLUCOSE (test code=GLU) 134 mg/dL 74-106 BLOOD UREA NITROGEN (test code=BUN) 9 mg/dL 7-18 GLOMERULAR FILTRATION RATE (test code=GFR) > 60 mL/min >=60 Estimated GFR by using Modified MDRD formula.Chronic kidney disease is defined as either kidney damageor GFR <60 mL/min/1.73 m2 for >3 months. CREATININE (test code=CREAT) 0.70 mg/dL 0.7-1.3 BUN/CREATININE RATIO (test code=BUN/CREA) 12.8 10-20 CALCIUM (test code=CA) 6.5 mg/dL 8.5-10.1 [id number] 18:00:00* Test Item Value Reference Range Comments PHOSPHORUS (test code=PHOS) 4.0 mg/dL 2.5-4.9 [id number] 18:00:00* Test Item Value Reference Range Comments MAGNESIUM (test code=MAG) 1.7 mg/dL 1.8-2.4 CPK-MB [id number] 18:00:00* Test Item Value Reference Range Comments CREATINE KINASE (CK) (test code=CK) 233 IUnit/L 26-208 CKMB (test code=CKMBT) 15.0 ng/mL 0-6.0 RELATIVE % INDEX (test code=REL%) 6.44 % 0.00-2.50 "If the total CK is elevated, the CKMB Fraction must beinterpreted as a Relative % Index, Normal is less than 2.5%"NOTE: Relative % Index is not valid with a normal total CK. [id number] 18:00:00* Test Item Value Reference Range Comments TROPONIN-I (test code=TROPI) 4.150 ng/mL 0-0.045 Results [place] [id number] by REAGAN 12/02/18 1800Critical results verified and read back by Nurse? Y CALCIUM [id number] 18:00:00* Test Item Value Reference Range Comments CALCIUM IONIZED (test code=CYNTHIA) 1.12 mmol/L 1.12-1.32 CBC W/AUTO [id number] 17:54:00* Test Item Value Reference Range Comments WHITE BLOOD CELL (test code=WBC) 14.5 K/mm3 4.5-12.5 RED BLOOD CELL (test code=RBC) 2.94 mill/mm3 4.0-5.8 HEMOGLOBIN (test code=HGB) 9.2 gram/dL 13.0-17.5 RESULT VERIFIED BY REPEAT ANALYSIS HEMATOCRIT (test code=HCT) 28.0 % 42.0-52.0 MEAN CELL VOLUME (test code=MCV) 95.2 fL 80-98 MEAN CELL HGB (test code=MCH) 31.3 picogram 27.0-33.0 MEAN CELL HGB CONCETRATION (test code=MCHC) 32.9 gram/dL 33.0-36.0 RED CELL DISTRIBUTION WIDTH (test code=RDW) 11.9 % 11.6-16.2 RED CELL DISTRIBUTION WIDTH SD (test code=RDW-SD) 41.1 fL 37.0-51.0 PLATELET COUNT (test code=PLT) 123 K/mm3 150-450 RESULT VERIFIED BY REPEAT ANALYSIS MEAN PLATELET VOLUME (test code=MPV) 11.2 fL 6.7-11.0 NEUTROPHIL % (test code=NT%) 88.3 % 39.0-69.0 IMMATURE GRANULOCYTE % (test code=IG%) 0.6 % 0.0-5.0 LYMPHOCYTE % (test code=LY%) 6.3 % 25.0-55.0 MONOCYTE % (test code=MO%) 4.6 % 0.0-10.0 EOSINOPHIL % (test code=EO%) 0.1 % 0.0-5.0 BASOPHIL % (test code=BA%) 0.1 % 0.0-1.0 NUCLEATED RBC % (test code=NRBC%) 0.0 % 0-0 NEUTROPHIL # (test code=NT#) 12.78 K/mm3 1.8-7.7 IMMATURE GRANULOCYTE # (test code=IG#) 0.09 x10 3/uL 0-0.03 LYMPHOCYTE # (test code=LY#) 0.91 K/mm3 1.0-5.0 MONOCYTE # (test code=MO#) 0.66 K/mm3 0-0.8 EOSINOPHIL # (test code=EO#) 0.01 K/mm3 0.0-0.5 BASOPHIL # (test code=BA#) 0.02 K/mm3 0.0-0.2 NUCLEATED RBC # (test code=NRBC#) 0.00 K/mm3 0.0-0.1 MANUAL DIFF REQUIRED (test code=MDIFF) NO BASIC METABOLIC [id number] 17:42:00* Test Item Value Reference Range Comments SODIUM (test code=NA) 144 mmol/L 136-145 POTASSIUM (test code=K) 4.1 mmol/L 3.5-5.1 CHLORIDE (test code=CL) 115.0 mmol/L 98-107 CARBON DIOXIDE (test code=CO2) mmol/L 21-32 ANION GAP (test code=GAP) 10-20 GLUCOSE (test code=GLU) mg/dL 74-106 BLOOD UREA NITROGEN (test code=BUN) mg/dL 7-18 GLOMERULAR FILTRATION RATE (test code=GFR) mL/min >=60 CREATININE (test code=CREAT) mg/dL 0.7-1.3 BUN/CREATININE RATIO (test code=BUN/CREA) 10-20 CALCIUM (test code=CA) mg/dL 8.5-10.1 [id number] 17:42:00* Test Item Value Reference Range Comments PHOSPHORUS (test code=PHOS) mg/dL 2.5-4.9 [id number] 17:42:00* Test Item Value Reference Range Comments MAGNESIUM (test code=MAG) mg/dL 1.8-2.4 CPK-MB [id number] 17:42:00* Test Item Value Reference Range Comments CREATINE KINASE (CK) (test code=CK) IUnit/L 26-208 CKMB (test code=CKMBT) ng/mL 0-6.0 RELATIVE % INDEX (test code=REL%) % 0.00-2.50 [id number] 17:42:00* Test Item Value Reference Range Comments TROPONIN-I (test code=TROPI) ng/mL 0-0.045 CALCIUM [id number] 17:42:00* Test Item Value Reference Range Comments CALCIUM IONIZED (test code=CYNTHIA) 1.12 mmol/L 1.12-1.32 BASIC METABOLIC [id number] 17:36:00* Test Item Value Reference Range Comments SODIUM (test code=NA) mmol/L 136-145 POTASSIUM (test code=K) mmol/L 3.5-5.1 CHLORIDE (test code=CL) mmol/L 98-107 CARBON DIOXIDE (test code=CO2) mmol/L 21-32 ANION GAP (test code=GAP) 10-20 GLUCOSE (test code=GLU) mg/dL 74-106 BLOOD UREA NITROGEN (test code=BUN) mg/dL 7-18 GLOMERULAR FILTRATION RATE (test code=GFR) mL/min >=60 CREATININE (test code=CREAT) mg/dL 0.7-1.3 BUN/CREATININE RATIO (test code=BUN/CREA) 10-20 CALCIUM (test code=CA) mg/dL 8.5-10.1 [id number] 17:36:00* Test Item Value Reference Range Comments PHOSPHORUS (test code=PHOS) mg/dL 2.5-4.9 [id number] 17:36:00* Test Item Value Reference Range Comments MAGNESIUM (test code=MAG) mg/dL 1.8-2.4 CPK-MB [id number] 17:36:00* Test Item Value Reference Range Comments CREATINE KINASE (CK) (test code=CK) IUnit/L 26-208 CKMB (test code=CKMBT) ng/mL 0-6.0 RELATIVE % INDEX (test code=REL%) % 0.00-2.50 [id number] 17:36:00* Test Item Value Reference Range Comments TROPONIN-I (test code=TROPI) ng/mL 0-0.045 CALCIUM [id number] 17:36:00* Test Item Value Reference Range Comments CALCIUM IONIZED (test code=CYNTHIA) 1.12 mmol/L 1.12-1.32 - XR CHEST 1 [id number] 17:15:00 FAX: Emmanuel Hammonds MD [phone] [place]: B St: ADM FAX: Martir Alvarado MD [phone] FAX: Lolly Prince FAX: Daryl Cohen [phone] Name: MORGAN GOLDMAN [facility] : 1950 Age/S: 68/M [address] [facility] Unit #: [id number] Loc: V.S [address] [place] [address] Phys: Lolly Aguero NP Acct: [id number] Dis Date: Status: ADM IN PHONE #: [phone] Exam D ate: 12/02/2018 1704 FAX #: [phone] Reason: P ost CAB EXAMS: CPT CODE: [id number] XR CHEST 1 V 70103 REASON FOR EXAM: Status post CABG Exam order date: 12/02/2018 2:15 PM Procedure: - XR CHEST 1 V Attending MNorma: Lolly Aguero NP FINDINGS: Single portable view of the chest obtained at 5:04 PM. The patient is intu bated with the tip of the ET tube about 2 cm above the sung. Right IJ c entral line tip is in the SVC. Right IJ Dahlgren-Nuzhat catheter tip is in the main pulmonary artery. Pulmonary vasculatures are mildly congested. Medias tinal drainage tube and left-sided chest tubes are present. Heart size is mildly enlarged. Left basal atelectasis is seen. Midline sternotomy wires present. No evidence of pneumothorax at 1718 Reported and signed by: Bryan Britt M.D. CC: Emmanuel Ramirez; Martir Javed; Lolly Aguero NP; Daryl Cohen Technologist: SHERITA TORO; RT Jose(R Trnscrd Date/Time/By: 12/02/2018 (6028) : By: MollyL Orig Pr int D/T: S: 12/02/2018 (5662) PAGE 1 Signed Report COAGULATION TIME ACTIVATED 2018-12-02 15:50:00* Test Item Value Reference Range Comments COAGULATION TIME ACTIVATED (test code=ACT) 127 seconds 62.8-88.0 COAGULATION TIME [id number] 14:34:00* Test Item Value Reference Range Comments COAGULATION TIME ACTIVATED (test code=ACT) 419 seconds 62.8-88.0 COAGULATION TIME [id number] 12:10:00* Test Item Value Reference Range Comments COAGULATION TIME ACTIVATED (test code=ACT) 619 seconds 62.8-88.0 COAGULATION TIME [id number] 09:53:00* Test Item Value Reference Range Comments COAGULATION TIME ACTIVATED (test code=ACT) 93 seconds 62.8-88.0 COMPREHENSIVE METABOLIC [id number] 16:56:00* Test Item Value Reference Range Comments SODIUM (test code=NA) 143 mmol/L 136-145 POTASSIUM (test code=K) 3.6 mmol/L 3.5-5.1 CHLORIDE (test code=CL) 107.0 mmol/L 98-107 CARBON DIOXIDE (test code=CO2) 29.0 mmol/L 21-32 ANION GAP (test code=GAP) 10.6 10-20 GLUCOSE (test code=GLU) 105 mg/dL 74-106 BLOOD UREA NITROGEN (test code=BUN) 16 mg/dL 7-18 GLOMERULAR FILTRATION RATE (test code=GFR) 60 mL/min >=60 Estimated GFR by using Modified MDRD formula.Chronic kidney disease is defined as either kidney damageor GFR <60 mL/min/1.73 m2 for >3 months. CREATININE (test code=CREAT) 1.20 mg/dL 0.7-1.3 BUN/CREATININE RATIO (test code=BUN/CREA) 13.8 10-20 TOTAL PROTEIN (test code=PROT) 7.8 gram/dL 6.4-8.2 ALBUMIN (test code=ALB) 3.9 g/dL 3.4-5.0 GLOBULIN (test code=GLOB) 3.9 gram/dL 2.7-4.2 ALBUMIN/GLOBULIN RATIO (test code=A/G) 1.0 0.75-1.50 CALCIUM (test code=CA) 9.0 mg/dL 8.5-10.1 BILIRUBIN TOTAL (test code=BILT) 0.50 mg/dL 0.0-1.0 SGOT/AST (test code=AST) 22 IUnit/L 15-37 SGPT/ALT (test code=ALT) 34 IUnit/L 12-78 ALKALINE PHOSPHATASE TOTAL (test code=ALKP) 106 IUnit/L 45-117 Note change in reference range due to change in reagent. [id number] 16:56:00* Test Item Value Reference Range Comments MAGNESIUM (test code=MAG) 2.1 mg/dL 1.8-2.4 COMPREHENSIVE METABOLIC [id number] 16:49:00* Test Item Value Reference Range Comments SODIUM (test code=NA) 143 mmol/L 136-145 POTASSIUM (test code=K) 3.6 mmol/L 3.5-5.1 CHLORIDE (test code=CL) 107.0 mmol/L 98-107 CARBON DIOXIDE (test code=CO2) mmol/L 21-32 ANION GAP (test code=GAP) 10-20 GLUCOSE (test code=GLU) mg/dL 74-106 BLOOD UREA NITROGEN (test code=BUN) mg/dL 7-18 GLOMERULAR FILTRATION RATE (test code=GFR) mL/min >=60 CREATININE (test code=CREAT) mg/dL 0.7-1.3 BUN/CREATININE RATIO (test code=BUN/CREA) 10-20 TOTAL PROTEIN (test code=PROT) gram/dL 6.4-8.2 ALBUMIN (test code=ALB) g/dL 3.4-5.0 GLOBULIN (test code=GLOB) gram/dL 2.7-4.2 ALBUMIN/GLOBULIN RATIO (test code=A/G) 0.75-1.50 CALCIUM (test code=CA) mg/dL 8.5-10.1 BILIRUBIN TOTAL (test code=BILT) mg/dL 0.0-1.0 SGOT/AST (test code=AST) IUnit/L 15-37 SGPT/ALT (test code=ALT) IUnit/L 12-78 ALKALINE PHOSPHATASE TOTAL (test code=ALKP) IUnit/L 45-117 [id number] 16:49:00* Test Item Value Reference Range Comments MAGNESIUM (test code=MAG) mg/dL 1.8-2.4 PROTHROMBIN [id number] 16:36:00* Test Item Value Reference Range Comments PROTHROMBIN TIME PATIENT (test code=PTP) 11.2 seconds 9.0-14.0 INTERNATIONAL NORMAL RATIO (test code=INR) 1.0 0.8-1.2 The therapeutic range for oral anticoagulant therapy formost indications is an international normalized ratio (INR)of between 2.0 and 3.0. The recommended therapeutic INRrange for various clinical situations is listed below: Clinical Situation INR range Pulmonary e mbolism treatment (2.0-3.0)Venous thrombosis treatmentVenous thrombosis prophylaxis (high risk surgery)Prevention of systemic embolism from: Acute myocardial infarction Valvular heart disease Atrial fibrillation Mechanical prosthetic heart valves (2.5-3.5) IS PATIENT ON ANTICOAGULANTS? NTHROMBOPLASTIN TIME [id number] 16:36:00* Test Item Value Reference Range Comments THROMBOPLASTIN TIME PARTIAL (test code=PTT) 35.5 seconds 25.0-36.5 IS PATIENT ON ANTICOAGULANTS? NCBC W/AUTO [id number] 16:29:00* Test Item Value Reference Range Comments WHITE BLOOD CELL (test code=WBC) 5.7 K/mm3 4.5-12.5 RED BLOOD CELL (test code=RBC) 4.37 mill/mm3 4.0-5.8 HEMOGLOBIN (test code=HGB) 13.3 gram/dL 13.0-17.5 HEMATOCRIT (test code=HCT) 42.1 % 42.0-52.0 MEAN CELL VOLUME (test code=MCV) 96.3 fL 80-98 MEAN CELL HGB (test code=MCH) 30.4 picogram 27.0-33.0 MEAN CELL HGB CONCETRATION (test code=MCHC) 31.6 gram/dL 33.0-36.0 RED CELL DISTRIBUTION WIDTH (test code=RDW) 11.9 % 11.6-16.2 RED CELL DISTRIBUTION WIDTH SD (test code=RDW-SD) 42.3 fL 37.0-51.0 PLATELET COUNT (test code=PLT) 217 K/mm3 150-450 MEAN PLATELET VOLUME (test code=MPV) 10.9 fL 6.7-11.0 NEUTROPHIL % (test code=NT%) 61.4 % 39.0-69.0 IMMATURE GRANULOCYTE % (test code=IG%) 0.4 % 0.0-5.0 LYMPHOCYTE % (test code=LY%) 26.5 % 25.0-55.0 MONOCYTE % (test code=MO%) 6.7 % 0.0-10.0 EOSINOPHIL % (test code=EO%) 4.6 % 0.0-5.0 BASOPHIL % (test code=BA%) 0.4 % 0.0-1.0 NUCLEATED RBC % (test code=NRBC%) 0.0 % 0-0 NEUTROPHIL # (test code=NT#) 3.49 K/mm3 1.8-7.7 IMMATURE GRANULOCYTE # (test code=IG#) 0.02 x10 3/uL 0-0.03 LYMPHOCYTE # (test code=LY#) 1.50 K/mm3 1.0-5.0 MONOCYTE # (test code=MO#) 0.38 K/mm3 0-0.8 EOSINOPHIL # (test code=EO#) 0.26 K/mm3 0.0-0.5 BASOPHIL # (test code=BA#) 0.02 K/mm3 0.0-0.2 NUCLEATED RBC # (test code=NRBC#) 0.00 K/mm3 0.0-0.1 MANUAL DIFF REQUIRED (test code=MDIFF) NO CBC W/AUTO [id number] 16:25:00* Test Item Value Reference Range Comments WHITE BLOOD CELL (test code=WBC) K/mm3 4.5-12.5 RED BLOOD CELL (test code=RBC) mill/mm3 4.0-5.8 HEMOGLOBIN (test code=HGB) 13.3 gram/dL 13.0-17.5 HEMATOCRIT (test code=HCT) 42.1 % 42.0-52.0 MEAN CELL VOLUME (test code=MCV) fL 80-98 MEAN CELL HGB (test code=MCH) picogram 27.0-33.0 MEAN CELL HGB CONCETRATION (test code=MCHC) gram/dL 33.0-36.0 RED CELL DISTRIBUTION WIDTH (test code=RDW) % 11.6-16.2 RED CELL DISTRIBUTION WIDTH SD (test code=RDW-SD) fL 37.0-51.0 PLATELET COUNT (test code=PLT) K/mm3 150-450 MEAN PLATELET VOLUME (test code=MPV) fL 6.7-11.0 NEUTROPHIL % (test code=NT%) % 39.0-69.0 IMMATURE GRANULOCYTE % (test code=IG%) % 0.0-5.0 LYMPHOCYTE % (test code=LY%) % 25.0-55.0 MONOCYTE % (test code=MO%) % 0.0-10.0 EOSINOPHIL % (test code=EO%) % 0.0-5.0 BASOPHIL % (test code=BA%) % 0.0-1.0 NEUTROPHIL # (test code=NT#) K/mm3 1.8-7.7 LYMPHOCYTE # (test code=LY#) K/mm3 1.0-5.0 MONOCYTE # (test code=MO#) K/mm3 0-0.8 EOSINOPHIL # (test code=EO#) K/mm3 0.0-0.5 BASOPHIL # (test code=BA#) K/mm3 0.0-0.2 ARTERIAL BLOOD [id number] 13:11:00* Test Item Value Reference Range Comments ARTERIAL BLOOD GAS PH (test code=PHA) 7.39 7.35-7.45 ARTERIAL BLOOD GAS PCO2 (test code=PCO2A) 39.4 mm Hg 35-45 ARTERIAL BLOOD GAS PO2 (test code=PO2A) 80.4 mmHg 80-100 BICARBONATE TOTAL HCO3 (test code=HCO3) 23.5 mmol/L 23.0-27.0 BASE EXCESS (test code=LOIVIA) -1.2 mmol/L -3.0-5.0 ABG O2 SATURATION (test code=SATA) 95.0 % 90.0-98.0 ABG TYPE (test code=TYPEA) Arterial FIO2 (test code=FIO2A) 21.0 ABG SITE (test code=SITEA) Lt RADIAL ARTERY HEMATOCRIT (test code=HCT/ABG) 42 % 42-52 TOTAL HGB (test code=THB) 14.4 gram/dL 13.0-17.5 HGB O2 SAT (test code=HBOSAT) 94.5 % 94.00-98.00 CARBOXYHEMOGLOBIN (test code=HOHGBT) 0.2 %totalHg 0.5-1.5 Results called to and read back by Lisa 13:11 - 12/01/2018; by DENISA METHEMOGLOBIN (test code=METHGB) 0.3 % 0.0-1.50 O2 CONTENT (test code=O2CT) 19.2 % vol 18.0-22.0 BASIC METABOLIC [id number] 12:16:00* Test Item Value Reference Range Comments SODIUM (test code=NA) 144 mmol/L 136-145 POTASSIUM (test code=K) 4.0 mmol/L 3.5-5.1 CHLORIDE (test code=CL) 110.0 mmol/L 98-107 CARBON DIOXIDE (test code=CO2) 27.0 mmol/L 21-32 ANION GAP (test code=GAP) 11.0 10-20 GLUCOSE (test code=GLU) 55 mg/dL 74-106 BLOOD UREA NITROGEN (test code=BUN) 12 mg/dL 7-18 GLOMERULAR FILTRATION RATE (test code=GFR) > 60 mL/min >=60 Estimated GFR by using Modified MDRD formula.Chronic kidney disease is defined as either kidney damageor GFR <60 mL/min/1.73 m2 for >3 months. CREATININE (test code=CREAT) 0.90 mg/dL 0.7-1.3 BUN/CREATININE RATIO (test code=BUN/CREA) 13.2 10-20 CALCIUM (test code=CA) 8.9 mg/dL 8.5-10.1 BASIC METABOLIC [id number] 12:10:00* Test Item Value Reference Range Comments SODIUM (test code=NA) 144 mmol/L 136-145 POTASSIUM (test code=K) 4.0 mmol/L 3.5-5.1 CHLORIDE (test code=CL) 110.0 mmol/L 98-107 CARBON DIOXIDE (test code=CO2) mmol/L 21-32 ANION GAP (test code=GAP) 10-20 GLUCOSE (test code=GLU) mg/dL 74-106 BLOOD UREA NITROGEN (test code=BUN) mg/dL 7-18 GLOMERULAR FILTRATION RATE (test code=GFR) mL/min >=60 CREATININE (test code=CREAT) mg/dL 0.7-1.3 BUN/CREATININE RATIO (test code=BUN/CREA) 10-20 CALCIUM (test code=CA) mg/dL 8.5-10.1 CBC W/O [id number] 11:13:00* Test Item Value Reference Range Comments WHITE BLOOD CELL (test code=WBC) 6.5 K/mm3 4.5-12.5 RED BLOOD CELL (test code=RBC) 4.27 mill/mm3 4.0-5.8 HEMOGLOBIN (test code=HGB) 13.0 gram/dL 13.0-17.5 HEMATOCRIT (test code=HCT) 40.1 % 42.0-52.0 MEAN CELL VOLUME (test code=MCV) 93.9 fL 80-98 MEAN CELL HGB (test code=MCH) 30.4 picogram 27.0-33.0 MEAN CELL HGB CONCETRATION (test code=MCHC) 32.4 gram/dL 33.0-36.0 RED CELL DISTRIBUTION WIDTH (test code=RDW) 11.9 % 11.6-16.2 PLATELET COUNT (test code=PLT) 220 K/mm3 150-450 MEAN PLATELET VOLUME (test code=MPV) 11.1 fL 6.7-11.0 CBC W/O [id number] 11:08:00* Test Item Value Reference Range Comments WHITE BLOOD CELL (test code=WBC) K/mm3 4.5-12.5 RED BLOOD CELL (test code=RBC) mill/mm3 4.0-5.8 HEMOGLOBIN (test code=HGB) 13.0 gram/dL 13.0-17.5 HEMATOCRIT (test code=HCT) % 42.0-52.0 MEAN CELL VOLUME (test code=MCV) fL 80-98 MEAN CELL HGB (test code=MCH) picogram 27.0-33.0 MEAN CELL HGB CONCETRATION (test code=MCHC) gram/dL 33.0-36.0 RED CELL DISTRIBUTION WIDTH (test code=RDW) % 11.6-16.2 PLATELET COUNT (test code=PLT) K/mm3 150-450 MEAN PLATELET VOLUME (test code=MPV) fL 6.7-11.0 - XR CHEST 2 [id number] 09:23:00 FAX: Emmanuel Hammonds MD [phone] [place]: St: ADM FAX: Martir Alvarado MD [phone] FAX: Lolly Prince FAX: Daryl Cohen [phone] Name: SANDRITA SA RODRIGUEZUL [facility] : 1950 Age/S: 68/M [address] [facility] Unit #: [id number] Loc: V.[address] [place] [address] Phys: Lolly Aguero NP Acct: [id number] Dis Date: Status: ADM IN PHONE #: [phone] Exam D ate: 11/29/2018 0912 FAX #: [phone] Reason: P RE CABG EXAMS: CPT CODE: [id number] XR CHEST 2 V 55417 EXAM: Chest X-ray, 2 views; CL INICAL HISTORY: CAD, pre-CABG; FINDINGS: The lungs are clear , no infiltrates, no edema; no effusions; no pneumothorax; normal cardiomediastinal silhouette. IMPRESSION: Normal chest x-ray. at 0923 Reported and signed by: Sunny Shelton C: Emmanuel Ramirez; Martir Javed; Lolly Aguero MARBLE INSTALLER; Harinder Cohen Technologist: Musa For rest RT(R) Trnscrd Date/Time/By: 11/29/2018 (0923) : By: Casimiro Orig Print D/T: S: 11/29/2018 (0636) PAGE 1 Signed Report BASIC METABOLIC [id number] 12:01:00* Test Item Value Reference Range Comments SODIUM (test code=NA) 142 mmol/L 136-145 POTASSIUM (test code=K) 4.2 mmol/L 3.5-5.1 CHLORIDE (test code=CL) 108.0 mmol/L 98-107 CARBON DIOXIDE (test code=CO2) 31.0 mmol/L 21-32 ANION GAP (test code=GAP) 7.2 10-20 GLUCOSE (test code=GLU) 103 mg/dL 74-106 BLOOD UREA NITROGEN (test code=BUN) 15 mg/dL 7-18 GLOMERULAR FILTRATION RATE (test code=GFR) > 60 mL/min >=60 Estimated GFR by using Modified MDRD formula.Chronic kidney disease is defined as either kidney damageor GFR <60 mL/min/1.73 m2 for >3 months. CREATININE (test code=CREAT) 1.10 mg/dL 0.7-1.3 BUN/CREATININE RATIO (test code=BUN/CREA) 13.9 10-20 CALCIUM (test code=CA) 9.8 mg/dL 8.5-10.1 BASIC METABOLIC [id number] 11:57:00* Test Item Value Reference Range Comments SODIUM (test code=NA) 142 mmol/L 136-145 POTASSIUM (test code=K) 4.2 mmol/L 3.5-5.1 CHLORIDE (test code=CL) 108.0 mmol/L 98-107 CARBON DIOXIDE (test code=CO2) mmol/L 21-32 ANION GAP (test code=GAP) 10-20 GLUCOSE (test code=GLU) mg/dL 74-106 BLOOD UREA NITROGEN (test code=BUN) mg/dL 7-18 GLOMERULAR FILTRATION RATE (test code=GFR) mL/min >=60 CREATININE (test code=CREAT) mg/dL 0.7-1.3 BUN/CREATININE RATIO (test code=BUN/CREA) 10-20 CALCIUM (test code=CA) mg/dL 8.5-10.1 PROTHROMBIN [id number] 11:28:00* Test Item Value Reference Range Comments PROTHROMBIN TIME PATIENT (test code=PTP) 11.3 seconds 9.0-14.0 INTERNATIONAL NORMAL RATIO (test code=INR) 1.0 0.8-1.2 The therapeutic range for oral anticoagulant therapy formost indications is an international normalized ratio (INR)of between 2.0 and 3.0. The recommended therapeutic INRrange for various clinical situations is listed below: Clinical Situation INR range Pulmonary e mbolism treatment (2.0-3.0)Venous thrombosis treatmentVenous thrombosis prophylaxis (high risk surgery)Prevention of systemic embolism from: Acute myocardial infarction Valvular heart disease Atrial fibrillation Mechanical prosthetic heart valves (2.5-3.5) THROMBOPLASTIN TIME [id number] 11:28:00* Test Item Value Reference Range Comments THROMBOPLASTIN TIME PARTIAL (test code=PTT) 35.9 seconds 25.0-36.5 CBC W/AUTO [id number] 11:15:00* Test Item Value Reference Range Comments WHITE BLOOD CELL (test code=WBC) 6.0 K/mm3 4.5-12.5 RED BLOOD CELL (test code=RBC) 4.53 mill/mm3 4.0-5.8 HEMOGLOBIN (test code=HGB) 13.7 gram/dL 13.0-17.5 HEMATOCRIT (test code=HCT) 43.3 % 42.0-52.0 MEAN CELL VOLUME (test code=MCV) 95.6 fL 80-98 MEAN CELL HGB (test code=MCH) 30.2 picogram 27.0-33.0 MEAN CELL HGB CONCETRATION (test code=MCHC) 31.6 gram/dL 33.0-36.0 RED CELL DISTRIBUTION WIDTH (test code=RDW) 11.8 % 11.6-16.2 RED CELL DISTRIBUTION WIDTH SD (test code=RDW-SD) 41.1 fL 37.0-51.0 PLATELET COUNT (test code=PLT) 258 K/mm3 150-450 MEAN PLATELET VOLUME (test code=MPV) 11.1 fL 6.7-11.0 NEUTROPHIL % (test code=NT%) 63.8 % 39.0-69.0 IMMATURE GRANULOCYTE % (test code=IG%) 0.2 % 0.0-5.0 LYMPHOCYTE % (test code=LY%) 26.5 % 25.0-55.0 MONOCYTE % (test code=MO%) 6.4 % 0.0-10.0 EOSINOPHIL % (test code=EO%) 2.8 % 0.0-5.0 BASOPHIL % (test code=BA%) 0.3 % 0.0-1.0 NUCLEATED RBC % (test code=NRBC%) 0.0 % 0-0 NEUTROPHIL # (test code=NT#) 3.81 K/mm3 1.8-7.7 IMMATURE GRANULOCYTE # (test code=IG#) 0.01 x10 3/uL 0-0.03 LYMPHOCYTE # (test code=LY#) 1.58 K/mm3 1.0-5.0 MONOCYTE # (test code=MO#) 0.38 K/mm3 0-0.8 EOSINOPHIL # (test code=EO#) 0.17 K/mm3 0.0-0.5 BASOPHIL # (test code=BA#) 0.02 K/mm3 0.0-0.2 NUCLEATED RBC # (test code=NRBC#) 0.00 K/mm3 0.0-0.1 CBC W/AUTO [id number] 11:10:00* Test Item Value Reference Range Comments WHITE BLOOD CELL (test code=WBC) K/mm3 4.5-12.5 RED BLOOD CELL (test code=RBC) mill/mm3 4.0-5.8 HEMOGLOBIN (test code=HGB) 13.7 gram/dL 13.0-17.5 HEMATOCRIT (test code=HCT) 43.3 % 42.0-52.0 MEAN CELL VOLUME (test code=MCV) fL 80-98 MEAN CELL HGB (test code=MCH) picogram 27.0-33.0 MEAN CELL HGB CONCETRATION (test code=MCHC) gram/dL 33.0-36.0 RED CELL DISTRIBUTION WIDTH (test code=RDW) % 11.6-16.2 RED CELL DISTRIBUTION WIDTH SD (test code=RDW-SD) fL 37.0-51.0 PLATELET COUNT (test code=PLT) K/mm3 150-450 MEAN PLATELET VOLUME (test code=MPV) fL 6.7-11.0 NEUTROPHIL % (test code=NT%) % 39.0-69.0 IMMATURE GRANULOCYTE % (test code=IG%) % 0.0-5.0 LYMPHOCYTE % (test code=LY%) % 25.0-55.0 MONOCYTE % (test code=MO%) % 0.0-10.0 EOSINOPHIL % (test code=EO%) % 0.0-5.0 BASOPHIL % (test code=BA%) % 0.0-1.0 NEUTROPHIL # (test code=NT#) K/mm3 1.8-7.7 LYMPHOCYTE # (test code=LY#) K/mm3 1.0-5.0 MONOCYTE # (test code=MO#) K/mm3 0-0.8 EOSINOPHIL # (test code=EO#) K/mm3 0.0-0.5 BASOPHIL # (test code=BA#) K/mm3 0.0-0.2 - XR CHEST 2 [id number] 11:06:00 FAX: Emmanuel Hammonds MD [phone] [place]: O St: PRE FAX: Martir Alvarado MD [phone] Name: GUSTAVOMORGAN [facility] : 1950 Age/S: 68/M [address] [facility] Unit #: [id number] Loc: [place] [address] Phys: Martir Javed MD Acct: [id number] Dis Date: Status: PRE SDC PHONE #: [phone] Exam Date: 11/19/2018 1054 FAX #: [phone] Reason: PRE OP EXAMS: CPT CODE: [id number] XR CHEST 2 V 82371 HISTORY: Preop. COMPARISON: None available. AP and lateral view of the chest: No acute infiltrates, effusion or congestion. Cardiac and the mediastinal silhouette are normal. IMPRESSION: No acute infiltrates, effusion or congestion. at 1106 Reported and signed by: Donta Alonzo M.D. CC: Emmanuel Ramirez; Martir Javed Technologist: RT Wandy(Boni) Trnscrd Date/Time/By: 11/19/2018 (1106) : By: [email or web address] Orig Print D/T: S: 11/19/2018 (6086) PAGE 1 Signed Report
[2019-03-12 10:05] VITALS: BP 143/91
--- NOTE | 2019-03-12 17:34 | Operative Report ---
DATE OF PROCEDURE: 03/12/2019 SURGEON: Sherman Hercules MD PREOPERATIVE DIAGNOSIS: Cubital tunnel syndrome, left arm. POSTOPERATIVE DIAGNOSIS: Cubital tunnel syndrome, left arm. OPERATION PERFORMED: Left arm ulnar nerve transposition. ANESTHESIA: General. HISTORY: The patient is a 68-year-old left-hand dominant male, who presents with EMG-proven cubital tunnel syndrome. The risks, benefits, and alternatives to treatment were discussed with the patient and they are prepared to undergo the procedures as outlined. DESCRIPTION OF PROCEDURE: The patient was brought to the operating theater. After the induction of adequate general inhalation anesthesia, the patient was prepped and draped in a supine position. A time out was performed by the entire operating room team. The procedure was begun by marking out the medial epicondyle and marking out incisions that extended proximally and distally from the medial epicondyle for a distance of 5 cm. The left upper extremity was exsanguinated, and a tourniquet was inflated to a pressure of 250 mmHg. The procedure was begun by incising through the skin and subcutaneous tissues sharply. Bleeding was controlled using the bipolar cautery. The dissection continued into the subcutaneous plane, and branches of the medial antebrachial cutaneous nerve were identified and protected and preserved as best possible. The dissection continued directly onto the medial epicondyle. At this point, the skin and subcutaneous tissues were elevated off the medial epicondyle and flexor pronator muscles mass. Posteriorly the skin and subcutaneous tissues were elevated off the medial epicondyle down to the level of the olecranon. Proximal to the cubital tunnel the medial intramuscular septum was identified at its attachment to the medial epicondyle. Just posterior to the intramuscular septum the ulnar nerve was identified proximal to its entrance in the cubital tunnel. Using the ulnar nerve as a guide, the overlying tissues were incised, taking care to protect and preserve the ulnar nerve. The dissection continued distally through the cubital tunnel, and the overlying thickened tissues were incised, once again taking care to protect and preserve the ulnar nerve throughout its course. The dissection continued distally onto the flexor pronator muscle mass. The fascia overlying the ulnar nerve was divided sharply, and the muscle fibers were then gently teased apart. The dissection continued distally until both the 1st and 2nd muscular branches off the ulnar nerve were identified. At this point, a 1/4 inch Sindy drain was placed around the nerve and used to elevate the nerve out of its bed. The posterior attachments were released, and the nerve was transposed anteriorly and subcutaneously. In order to prevent a neosite of compression, the intramuscular septum was transected at the medial epicondyle and removed for a distance of several centimeters proximally. A subcutaneous sling was fashioned by suturing the subcutaneous fascia to the tissue around the medial epicondyle using 3-0 Vicryl in an interrupted manner. Care was taken to ensure that the nerve was not compressed or kinked during this maneuver. The elbow was placed through a range of motion verifying the adequacy of the transposition. The wound was copiously irrigated and closed as follows: 3-0 Vicryl was used to close the deep dermis in a buried interrupted fashion, and 5-0 nylon was used in an interrupted horizontal mattress fashion to approximate the skin. A Marcaine field block was performed at the operative site. The tourniquet was deflated. All the fingers pinked up nicely. A sterile bulky conforming bandage was applied from axilla to wrist. This was held in place with loosely wrapped Evert wraps. The patient tolerated the procedure well and was brought to the recovery room in satisfactory condition. The patient was discharged with a postoperative instruction sheet as well as a followup appointment. MD LEONEL Rahman/LEONEL /[id number]
== END | disposition home or self-care (01) ==
LOC: OR 05:38
PROVIDERS: ATTEND Plastic Surgery
DX: G56.22 Lesion of ulnar nerve, left upper limb (principal); I10 Essential (primary) hypertension; M19.90 Unspecified osteoarthritis, unspecified site; M54.2 Cervicalgia; I25.810 Atherosclerosis of coronary artery bypass graft(s) without angina pectoris; E78.5 Hyperlipidemia, unspecified; R00.1 Bradycardia, unspecified; Z01.810 Encounter for preprocedural cardiovascular examination; Z01.812 Encounter for preprocedural laboratory examination; Z01.818 Encounter for other preprocedural examination; Z95.1 Presence of aortocoronary bypass graft; Z87.891 Personal history of nicotine dependence
CPT/HCPCS: 36415; 64718; 71046; 85025; 93005; J0131; J0690; J1100; J2001; J2250; J2405; J2704; J3010

== ENCOUNTER 2024-10-15 16:57 | Emergency (ER) | payer MEDICARE ==
[~2024-10-15 16:57] MED LIST changes: -ACETAMINOPHEN 1000 MG/100 ML IV ONE; -BUPIVACAINE HCL 0.5% INJ 30 ML VIAL INJ ONE; -CEFAZOLIN SOD 1 GM/NS 50ML 50 ML IV ONE; -DEXAMETHASONE SOD PHOS INJ 4 MG/ML VIAL ONE; -EPHEDRINE SULFATE INJ 50 MG/10 ML SYR ONE; -FENTANYL CITRATE/PF 100MCG/2 ML INJ ONE; -LIDOCAINE HCL 2% LOCAL INJ 5 ML SDV VIAL INJ ONE; -MIDAZOLAM HCL 2 MG/2 ML VIAL ONE; -MUPIROCIN 2% OINT 22 GM TUBE ONE; -ONDANSETRON HCL INJ 2MG/ML 2ML 2 MG/ML VIAL ONE; -PROPOFOL IV EMULSION 10 MG/ML 20 ML VIAL ONE; -SEVOFLURANE INHAL SOLN 250 ML PEN BTL ONE
[2024-10-15 17:11] VITALS: PULSE 73; RESP 16; TEMP 97.5
[2024-10-15] MEDS: SODIUM CHLORIDE 0.9% 500ML 500 ML IV STA (17:29)
[2024-10-15] MEDS: ONDANSETRON HCL INJ 2MG/ML 2ML 2 MG/ML VIAL IV ONE (17:29)
[2024-10-15] MEDS: FAMOTIDINE 20 MG/2 ML VIAL IV ONE (17:29)
[2024-10-15] MEDS: KETOROLAC TROMETHAMINE 30 MG/ML VIAL IV ONE (17:30)
[2024-10-15] MEDS ORDERED: MAALOX MAXIMUM355 ML PO (17:45)
[2024-10-15] MEDS ORDERED: PANTOPRAZOLE SO40 MG PO (17:45)
[2024-10-15] MEDS ORDERED: ONDANSETRON ODT4 MG PO (17:45)
[2024-10-15 19:11] VITALS: BP 179/78; PULSE 72; RESP 18; TEMP 98; O2SAT 95
[2024-10-16] MEDS ORDERED: LASIX20 MG PO (22:34)
== END 2024-10-15 19:11 | disposition home or self-care (01) ==
LOC: FSED 17:18
DX: R10.13 Epigastric pain (principal); K80.20 Calculus of gallbladder without cholecystitis without obstruction; R11.0 Nausea; R14.2 Eructation; I10 Essential (primary) hypertension; I25.10 Atherosclerotic heart disease of native coronary artery without angina pectoris; K21.9 Gastro-esophageal reflux disease without esophagitis; Z95.1 Presence of aortocoronary bypass graft
CPT/HCPCS: 74176; 80048; 80076; 81003; 84484; 85025; 93005; 99283; J1308; J1885; J2405; J7040

== ENCOUNTER 2024-10-16 15:23 | Inpatient (IN) | payer MEDICARE ==
[~2024-10-16] VITALS: Ht 165.1 cm; Wt 84.0 kg
[~2024-10-16 15:23] MED LIST changes: +MAALOX MAXIMUM355 ML PO; +ONDANSETRON ODT4 MG PO; +PANTOPRAZOLE SO40 MG PO
[2024-10-16] MEDS: ONDANSETRON HCL INJ 2MG/ML 2ML 2 MG/ML VIAL IV STA (15:48)
[2024-10-16] MEDS: Morphine 4mg INJECTION 4 MG/ML INJ IV ONE ×2 (15:49→17:26)
[2024-10-16 18:09] VITALS: PULSE 91; RESP 17; TEMP 98.1
[2024-10-16] MEDS ORDERED: LABETALOL HCL 5 MG/ML 20ML VIAL IV PRN (19:15)
[2024-10-16 21:30] VITALS: BP 149/74; PULSE 78; RESP 18; TEMP 97.6; O2SAT 98
[2024-10-16 21:35] VITALS: PULSE 89; RESP 16; O2SAT 96
[2024-10-16 22:00] VITALS: BP 142/80; PULSE 76; RESP 18; TEMP 98.2; O2SAT 96
[2024-10-16] MEDS: Morphine 4mg INJECTION 4 MG/ML INJ IV PRN (22:17)
[2024-10-16] MEDS: SODIUM CHLORIDE 0.9% 1000ML 1,000 ML IV SCH (22:23)
[2024-10-16] MEDS ORDERED: LASIX20 MG PO (22:34)
[2024-10-17] VITALS (7 sets, daily range): BP systolic 121–153; BP diastolic 62–83; PULSE 58–96; RESP 18–20; TEMP 97.6–98.6; O2SAT 94–100
[2024-10-17] MEDS ORDERED: MAGNESIUM/ALUMINUM/SIMETHICONE 30 ML UDC ONE (00:16)
[2024-10-17] MEDS ORDERED: LIDOCAINE VISC 2% SOLN 15 ML UDC ONE (00:16)
[2024-10-17] MEDS ORDERED: BELLADONNA ALK/PHENOBARBITAL 5 ML UDC ONE (00:16)
[2024-10-17] MEDS: DONNATAL/LIDOCAINE/MAALOX 30 ML SUSP PO ONE (00:22)
[2024-10-17 05:46] LABS: BASOPHILS % 0.1 % (0.0-1.0); EOSINOPHILS % 0.2 % (0.0-6.0); LYMPHOCYTES % 6.1 % (18.0-39.1); MONOCYTES % 5.8 % (4.4-11.3); NEUTROPHILS % 87.5 % (38.7-80.0); RED CELL DISTRIBUTION WIDTH 14.0 % (11.7-14.4)
[2024-10-17 06:04] LABS: CHOL/HDL RATIO 2.1 (3.9-4.7); EST GLOMERULAR FILTRATION RATE 86.0 ML/MIN (>=60); LDL CHOLESTEROL 46.0 MG/DL (60-130); PHOSPHORUS 2.3 MG/DL (2.3-4.7)
[2024-10-17] MEDS: ONDANSETRON HCL INJ 2MG/ML 2ML 2 MG/ML VIAL IV PRN (07:19)
[2024-10-17] MEDS: DOCUSATE SODIUM 100 MG CAP PO SCH (08:59)
[2024-10-17] MEDS ORDERED: FAMOTIDINE 20 MG/2 ML VIAL IV SCH (09:00)
[2024-10-17] MEDS ORDERED: ROCURONIUM BROMIDE 1 ML IV ONE (09:35)
[2024-10-17] MEDS ORDERED: FENTANYL CITRATE/PF 100MCG/2 ML INJ ONE (09:35)
[2024-10-17] MEDS ORDERED: PROPOFOL IV EMULSION 10 MG/ML 20 ML VIAL ONE (09:38)
[2024-10-17] MEDS ORDERED: PHENYLEPHRINE HCL 1% 10 MG/ML VIAL ONE (10:04)
[2024-10-17] MEDS ORDERED: SODIUM CHLORIDE 0.9% 100 ML ONE (10:07)
[2024-10-17] MEDS ORDERED: DEXAMETHASONE SOD PHOS INJ 4 MG/ML SDV ONE (10:12)
[2024-10-17] MEDS ORDERED: ACETAMINOPHEN 1000 MG/100 ML 100 ML IV ONE (10:12)
[2024-10-17] MEDS ORDERED: SUGAMMADEX SODIUM 200 MG/2 ML VIAL IV ONE (11:16)
[2024-10-17] MEDS ORDERED: ONDANSETRON HCL INJ 2MG/ML 2ML 2 MG/ML VIAL ONE (11:25)
[2024-10-17] MEDS ORDERED: METOPROLOL TARTRATE INJ 1 MG/ML VIAL ONE (11:31)
[2024-10-17] MEDS: ACETAMINOPHEN 325 MG TAB PO PRN (13:01)
[2024-10-17] MEDS: HYDROCODONE/APAP 7.5MG-325MG 1 EA TAB PO PRN (16:23)
[2024-10-17 19:20] LABS: LEUKOCYTE ESTERASE ,URINE NEGATIVE (NEGATIVE); PROTEIN,URINE DIPSTICK 1+ (NEGATIVE)
[2024-10-17 19:21] LABS: URINE UROBILINOGEN 0.2 mg/dL (0.2 - 1)
[2024-10-17 19:32] LABS: EPITHELIAL CELLS,URINE FEW /LPF
[2024-10-18] VITALS (7 sets, daily range): BP systolic 116–168; BP diastolic 60–75; PULSE 52–83; RESP 18–20; TEMP 97.4–98.9; O2SAT 95–100
[2024-10-18 07:07] LABS: BASOPHILS % 0.1 % (0.0-1.0); EOSINOPHILS % 0.0 % (0.0-6.0); LYMPHOCYTES % 4.5 % (18.0-39.1); MONOCYTES % 3.0 % (4.4-11.3); NEUTROPHILS % 91.7 % (38.7-80.0); RED CELL DISTRIBUTION WIDTH 14.3 % (11.7-14.4)
[2024-10-18 07:36] LABS: EST GLOMERULAR FILTRATION RATE 58.0 ML/MIN (>=60)
[2024-10-18] MEDS: POLYETHYLENE GLYCOL 3350 17 GM PACK PO PRN (15:14)
[2024-10-18] MEDS: LACTULOSE SYRUP 20 GM/30 ML UDC PO PRN (17:46)
[2024-10-18] MEDS: ONDANSETRON HCL INJ 2MG/ML 2ML 2 MG/ML VIAL IV PRN (19:56)
[2024-10-19] VITALS (8 sets, daily range): BP systolic 16–200; BP diastolic 80–115; PULSE 88–147; RESP 18–46; TEMP 97.8–98.5; O2SAT 97–98
[2024-10-19] MEDS: SIMETHICONE 80 MG CHEW PO PRN (05:27)
[2024-10-19 05:53] LABS: BASOPHILS % 0.1 % (0.0-1.0); EOSINOPHILS % 0.2 % (0.0-6.0); LYMPHOCYTES % 5.6 % (18.0-39.1); MONOCYTES % 3.9 % (4.4-11.3); NEUTROPHILS % 89.7 % (38.7-80.0); RED CELL DISTRIBUTION WIDTH 13.9 % (11.7-14.4)
[2024-10-19 06:19] LABS: EST GLOMERULAR FILTRATION RATE 45.0 ML/MIN (>=60)
[2024-10-19] MEDS: HYDRALAZINE HCL 20 MG/ML VIAL IV PRN (06:28)
[2024-10-19] MEDS ORDERED: IOPAMIDOL 370 MG/ML 100 ML INFUS..BTL INJ ONE (06:54)
[2024-10-19] MEDS: BISACODYL 10 MG SUPP PR PRN (09:12)
[2024-10-19] MEDS: ENOXAPARIN SOD INJ 40 MG/0.4 ML SYR SC SCH (12:03)
[2024-10-19] MEDS: METRONIDAZOLE 500MG/NS 100ML 100 ML IV SCH (12:03)
[2024-10-19] MEDS: CARVEDILOL 12.5 MG TAB PO SCH (13:19)
[2024-10-19] MEDS: SOD PHOSPHATE/SOD BIPHOSPHATE ENEMA 132 ML BTL PR ONE (23:19)
[2024-10-20] VITALS (11 sets, daily range): BP systolic 97–185; BP diastolic 54–102; PULSE 64–96; RESP 16–22; TEMP 97–98.4; O2SAT 91–100
[2024-10-20] MEDS: SOD PHOSPHATE/SOD BIPHOSPHATE ENEMA 132 ML BTL PR ONE
[2024-10-20] MEDS: METOCLOPRAMIDE HCL 10 MG/2ML VIAL IV SCH (01:43)
[2024-10-20] MEDS: ONDANSETRON HCL INJ 2MG/ML 2ML 2 MG/ML VIAL IV PRN (03:16)
[2024-10-20] MEDS: MINERAL OIL 132 ML BTL PR ONE (06:10)
[2024-10-20] MEDS: ENOXAPARIN INJ 80 MG/0.8 ML SYR SC STA (07:04)
[2024-10-20 07:23] LABS: BASOPHILS % 0.1 % (0.0-1.0); EOSINOPHILS % 1.3 % (0.0-6.0); LYMPHOCYTES % 4.3 % (18.0-39.1); MONOCYTES % 4.4 % (4.4-11.3); NEUTROPHILS % 89.6 % (38.7-80.0); RED CELL DISTRIBUTION WIDTH 14.0 % (11.7-14.4)
[2024-10-20 07:51] LABS: EST GLOMERULAR FILTRATION RATE 48.0 ML/MIN (>=60)
[2024-10-20] MEDS: TAMSULOSIN HCL 0.4 MG CAP PO SCH (08:09)
[2024-10-20] MEDS ORDERED: POLYETHYLENE GLYCOL 3350 17 GM PACK PO SCH (09:00)
[2024-10-20] MEDS: POLYETHYLENE GLYCOL 3350 17 GM PACK PO SCH (09:00)
[2024-10-20] MEDS: SODIUM CHLORIDE 0.9% 250ML IRRIG IR SCH (12:47)
[2024-10-20] MEDS: MAGNESIUM HYDROXIDE 30 ML UDC NG ONE (22:41)
[2024-10-21] VITALS (8 sets, daily range): BP systolic 138–164; BP diastolic 64–81; PULSE 56–65; RESP 17–20; TEMP 97.6–98.4; O2SAT 92–100
[2024-10-21] MEDS: Morphine 2mg Syringe 2 MG/ML SYR IV PRN (01:37)
[2024-10-21 05:25] LABS: BASOPHILS % 0.3 % (0.0-1.0); EOSINOPHILS % 1.6 % (0.0-6.0); LYMPHOCYTES % 8.9 % (18.0-39.1); MONOCYTES % 7.6 % (4.4-11.3); NEUTROPHILS % 81.3 % (38.7-80.0); RED CELL DISTRIBUTION WIDTH 13.9 % (11.7-14.4)
[2024-10-21 05:50] LABS: EST GLOMERULAR FILTRATION RATE 64.0 ML/MIN (>=60)
[2024-10-21] MEDS: MAGNESIUM HYDROXIDE 30 ML UDC PO PRN (10:51)
[2024-10-22] VITALS (8 sets, daily range): BP systolic 151–168; BP diastolic 63–72; PULSE 59–74; RESP 16–22; TEMP 97.9–98.8; O2SAT 94–97
[2024-10-22 05:47] LABS: EST GLOMERULAR FILTRATION RATE 89.0 ML/MIN (>=60)
[2024-10-22] MEDS: LISINOPRIL 10 MG TAB PO SCH (08:53)
[2024-10-22] MEDS ORDERED: LOSARTAN POTASSIUM 100 MG TAB PO SCH (09:00)
[2024-10-22] MEDS: POTASSIUM CHLORIDE 20MEQ/100ML 100 ML IV ONE (12:47)
[2024-10-22] MEDS: PANTOPRAZOLE SOD 40 MG TABEC PO SCH (17:17)
[2024-10-23] VITALS (11 sets, daily range): BP systolic 111–157; BP diastolic 55–72; PULSE 55–90; RESP 16–18; TEMP 97.7–99.9; O2SAT 95–99
[2024-10-23] MEDS: POLYETHYLENE GLYCOL 3350 17 GM PACK PO SCH (09:00)
[2024-10-23] MEDS: POTASSIUM CHLORIDE 10MEQ EA PO ONE (12:12)
[2024-10-23] MEDS: CARVEDILOL 12.5 MG TAB PO SCH (21:26)
[2024-10-23] MEDS: POTASSIUM CHLORIDE 20 MEQ TAB CR PO STA (23:42)
[2024-10-24] VITALS (7 sets, daily range): BP systolic 106–142; BP diastolic 61–70; PULSE 57–78; RESP 16–18; TEMP 97.7–98.2; O2SAT 60–100
[2024-10-24 05:37] LABS: BASOPHILS % 0.4 % (0.0-1.0); EOSINOPHILS % 2.0 % (0.0-6.0); LYMPHOCYTES % 11.2 % (18.0-39.1); MONOCYTES % 6.3 % (4.4-11.3); NEUTROPHILS % 78.2 % (38.7-80.0); RED CELL DISTRIBUTION WIDTH 14.1 % (11.7-14.4)
[2024-10-24 05:56] LABS: EST GLOMERULAR FILTRATION RATE 65.0 ML/MIN (>=60)
[2024-10-24] MEDS ORDERED: REGLAN10 MG PO (12:56)
[2024-10-24] MEDS ORDERED: DOCUSATE SODIU100 MG PO (12:56)
[2024-10-24] MEDS ORDERED: PANTOPRAZOLE SO40 MG PO (12:56)
[2024-10-24] MEDS ORDERED: AMOX TR-K CLV1 EAC2 PO (12:56)
[2024-10-24] MEDS ORDERED: Tylenol #3 PO (12:58)
== END 2024-10-24 21:31 | disposition home or self-care (01) | DRG 418 ==
LOC: FSED 15:28 → ERHOLD 18:20 → MED/SURG 21:24 → OBSVTOIN 10-18 14:48
PROVIDERS: ADMIT Internal Medicine; ATTEND Internal Medicine
PROC: 0FT44ZZ Resection of Gallbladder, Percutaneous Endoscopic Approach (ICD-10-PCS; principal; 2024-10-17 09:55)
PROC: 0T9B70Z Drainage of Bladder with Drainage Device, Via Natural or Artificial Opening (ICD-10-PCS; 2024-10-18)
PROC: 0D9670Z Drainage of Stomach with Drainage Device, Via Natural or Artificial Opening (ICD-10-PCS; 2024-10-20)
DX: K80.00 Calculus of gallbladder with acute cholecystitis without obstruction (principal); I16.9 Hypertensive crisis, unspecified; K56.7 Ileus, unspecified; N17.9 Acute kidney failure, unspecified; K91.89 Other postprocedural complications and disorders of digestive system; N39.0 Urinary tract infection, site not specified; I10 Essential (primary) hypertension; I25.10 Atherosclerotic heart disease of native coronary artery without angina pectoris; K42.9 Umbilical hernia without obstruction or gangrene; N40.0 Benign prostatic hyperplasia without lower urinary tract symptoms; R33.9 Retention of urine, unspecified; R74.01 Elevation of levels of liver transaminase levels; K29.70 Gastritis, unspecified, without bleeding; K59.00 Constipation, unspecified; R31.9 Hematuria, unspecified; E66.9 Obesity, unspecified; E87.6 Hypokalemia; Z95.1 Presence of aortocoronary bypass graft; Z68.30 Body mass index [BMI] 30.0-30.9, adult
CPT/HCPCS: 36415; 71045; 74018; 74019; 74022; 74177; 76700; 80053; 80061; 81001; 83036; 83690; 83735; 84100; 84439; 84443; 84484; 85025; 85379; 88304; 93005; 94799; 99252; 99284; G0378; J0360; J1100; J1650; J2270; J2371; J2405; J2470; J2543; J2765; J3480; J7030; J7050; Q9967